=== PATIENT | female | born 1950 | race Caucasian/White ===

== ENCOUNTER → 2019-05-29 13:00 | Outpatient (BNVA) | payer MEDICARE, SELFPAY | PROVIDERS: Family Provider Nurse Practitioner Family; PCP Nurse Practitioner Family; Visit Provider Specialist | DX: G20 Parkinson's disease (principal) | CPT/HCPCS: 99213 ==

== ENCOUNTER 2019-06-04 20:05 | Emergency (ER) | payer MEDICARE, SELFPAY ==
--- NOTE | 2019-06-04 20:07 | ED_ITS ---
Entered by Josephine Cabrera, acting as scribe for Cristy Doherty MD HPI - Fall General: Chief Complaint: Trauma Stated Complaint: RIGHT HIP PAIN Time Seen by Provider: 06/04/19 20:06 Source: patient and EMS Mode of arrival: EMS ([facility]) Limitations: no limitations History of Present Illness: HPI Narrative: 69 yo f came to the er by [facility] for right hip pain. 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 Pt said that she felt a pop and then fell right after that. Pt is non weight bearing at this time. Pt said that her collapsed and she tried picking hip up and that is when her hip popped. Pt said that she had a hip replacement 10 years ago but does not remember who did it. 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) Fall from: standing Fall witnessed: no Place fall occurred: home Loss of consciousness: None Prolonged down time: no Symptoms prior to fall: none Context: other (tried helping her up and then it popped) Location of injury: other (right hip) Severity: moderate Quality: sharp Associated symptoms-after fall: Reports no associated symptoms and difficulty walking (cannot bear any weight); Denies chest pain or neck pain Review of Systems General: Reports: other (negative unless marked) Const: Denies: fever, chills, body aches or change in appetite Eyes: Denies: blurry vision or eye discomfort ENMT: Denies: throat pain or dental pain Card: Denies: chest pain Resp: Denies: shortness of breath or productive cough GI: Denies: nausea : Denies: painful urination Musc: Denies: neck pain or back pain Skin/Breast: Denies: rash Neuro: Reports: difficulty walking (cannot bear any weight) Psych: Denies: depression Narciso/Lymph: Denies: easy bruising All/Imm: Denies: hives PFSH ED PFSH: Social History Smoking and tobacco status: never smoked Alcohol intake: never History of recent travel: No Physical Exam Const: COMMON NORMALS: no apparent distress, oriented x3 and healthy appearing HENMT: COMMON NORMALS: normocephalic and head/scalp atraumatic HEAD & SCALP: normocephalic and atraumatic Eye: COMMON NORMALS: PERRL and EOMs intact bilaterally PUPIL: Yes PERRL Neck/C-Spine: COMMON NORMALS: full ROM and supple Chest: COMMONS NORMALS: inspection of chest normal and palpation of chest normal Resp: COMMON NORMALS: normal respiratory effort, no retractions, no use of accessory muscles and clear to auscultation bilaterally AUSCULTATION: clear to auscultation bilaterally Cardio: COMMON NORMALS: regular rate, regular rhythm and no murmurs RATE: regular rate RHYTHM: regular rhythm GI: COMMON NORMALS: normal to inspection, nondistended, normoactive bowel sounds, soft to palpation, non-tender and no masses PALPATION: Yes soft Extremity: NARRATIVE EXTREMITY EXAM: shortened right leg with painful rom Neuro: COMMON NORMALS: oriented x3, moves all extremities and no focal motor deficits Psych: COMMON NORMALS: mental status grossly normal, thought process normal and cooperative THOUGHT PROCESS: normal thought process Skin: COMMON NORMALS: no rashes or lesions noted and no wounds GENERAL SKIN EXAM: no rashes or lesions noted Procedures Orthopedic Joint Reduction Joint #1: Time Out Performed: Yes Side: right Joint Reduction Location: hip Analgesia: procedural sedation Technique used: traction/counter-traction Post-reduction neuro exam: intact Post-reduction vascular: intact Post Reduction X-Ray Obtained: Yes Post Reduction X-Ray Results: reduced Splint Applied: Yes Patient Tolerated Procedure: well Procedural Sedation Indication: fracture/dislocation reduction ASA Class: II Time of Last PO Intake: 12:22 IV Propofol dose (mg): 100 Patient Tolerated Procedure: well Complications: none Interventions: oxygen applied Course Vital Signs: Vital signs: Vital Signs Temperature 97.8 F 06/04/19 21:11 Pulse Rate 68 06/04/19 22:27 Respiratory Rate 16 06/04/19 22:27 Blood Pressure 124/70 06/04/19 22:27 Pulse Oximetry 98 06/04/19 22:27 MDM - Fall MDM Narrative: Medical decision making narrative: Patient presents here with right hip dislocation after a fall. Hip was successfully reduced and patient placed in a knee immobilizer. Patient is stable for discharge and is to follow- up with Dr. Winter in 2 to 4 days. Patient is to return if worsening. Imaging Data^: xr right hip: Attestation: I personally reviewed and interpreted this imaging study as follows: My impression: right hip dislocation xr hip: Attestation: I personally reviewed and interpreted this imaging study as follows: Radiologist's impression: successful reduction Discharge Plan Discharge Patient Disposition: Home, Self-Care Clinical Impression: Dislocation, hip Qualifiers: Encounter type: initial encounter Laterality: right Qualified Code(s): S73.004A - Unspecified dislocation of right hip, initial encounter Condition: Stable Prescriptions: [place] 5-325 mg tablet 1 tab PO Q6H PRN (Reason: pain) Qty: 10 RF: 0 No Action celecoxib 100 mg capsule 100 mg PO DAILY RF: 0 multivitamin with minerals [Hair,Skin and Nails] Tablet 1 tab PO DAILY RF: 0 turmeric root extract 500 mg capsule 500 mg PO DAILY RF: 0 omega-3 fatty acids 1,000 mg capsule 1,000 mg PO DAILY RF: 0 PreserVision AREDS [id number],320-226-200 [id number] capsule 1 cap PO ONCE RF: 0 nortriptyline 25 mg capsule 25 mg PO DAILY RF: 0 atorvastatin 10 mg tablet 5 mg PO DAILY RF: 0 vitamin E 200 unit capsule 100 unit PO DAILY RF: 0 metformin 500 mg tablet 500 mg PO DAILY RF: 0 fluticasone propionate 50 mcg/actuation spray,suspension 2 spray INTRANASAL DAILY RF: 0 irbesartan 150 mg tablet 225 mg PO DAILY RF: 0 carbidopa-levodopa 25-100 mg tablet See Rx Instructions PO DAILY Qty: 180 RF: 2 B Complex 1.7-20-2-1.2 mg/mL Liquid 1.7 ml SUBLINGUAL DAILY RF: 0 Discharge Orders: Discharge Order (Routine); Ordered 06/04/19 Ordered By: Cristy Doherty Referrals: Jody Lloyd MD [Physician] - 1-3 days Leigh Ovalle NP [Primary Care Provider] - Discharge Diet: Advance as tolerated Discharge Activity: Resume usual activity Patient Instructions: Hip Dislocation (ED) Discharge Date/Time: 06/04/19 22:29 Coding Level of Care Code ED Dampener for Chg 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 The documentation recorded by the Rick soto Stephanie Lyn, accurately reflects the service I personally performed and the decisions made by Chas dorado Korby, MD Jun 04, 2019 20:05
--- NOTE | 2019-06-04 20:09 | XR_ITS ---
WS: [id number] Right hip, AP and frog leg, 06/04/2019 Clinical Data: injury Comparison: Right hip, 10/15/2007 Findings: The femoral head prosthesis has been dislocated from the femoral acetabular cup of the right hip arth roplasty. The femoral head is superior to the acetabular cup. No fractures are seen. XR/XR hip RT 2-3V wo/w pel* [id number] Impression: Dislocation of femoral head prosthesis from the femoral acetabular cup of right hip arthroplasty.
[2019-06-04 20:10] VITALS: BP 171/98; PULSE 100; RESP 18; TEMP 37.1; O2SAT 97; BMI 27.8
[2019-06-04] MEDS: morphine 4 mg/mL SDV 1 mL IVP (21:06)
[2019-06-04 21:11] VITALS: BP 176/91; PULSE 63; RESP 14; TEMP 36.6; O2SAT 100
--- NOTE | 2019-06-04 21:14 | XR_ITS ---
WS: [id number] Right hip, AP view, 06/04/2019, 2127 hours Clinical Data: REDUCTION Comparison: Right hip, 06/04/2019, 2014 hours Findings: The dislocation of the right femoral head prosthesis has been relocated into the right acetabular cup . XR/XR hip RT 2-3V wo/w pel* [id number] Impression: Reduction of right hip dislocation.
[2019-06-04] MEDS: propofol 10 mg/mL SDV 20 mL 100 MG IVP (21:15)
[2019-06-04 21:16] VITALS: BP 146/96; PULSE 90; RESP 16; O2SAT 98
[2019-06-04 21:20] VITALS: BP 157/75; PULSE 91; RESP 16; O2SAT 99
[2019-06-04 21:30] VITALS: BP 122/80; PULSE 93; RESP 16; O2SAT 100
[2019-06-04 22:27] VITALS: BP 124/70; PULSE 68; RESP 16; O2SAT 98
--- NOTE | 2019-06-05 11:25 | DCPLANNER ---
occupational health and safety manager had message to schedule a follow up appointment for patient with ortho. occupational health and safety manager called ortho clinic, spoke with Sierra, gave clinic patients information. occupational health and safety manager was told that patients information would be printed and reviewed. Clinic will call nurse case management and patient with appointment information.
--- NOTE | 2019-06-06 09:31 | DCPLANNER ---
pool manager had message from the ortho clinic, Patient has a follow up appointment scheduled for Monday, June 10, 2019 at 1:[address] Lloyd. Clinic will call patient with appointment information.
--- NOTE | 2019-06-28 14:22 | DCPLANNER ---
Patient did attend appointment scheduled for 06.10.[address] Lloyd at ortho.
== END 2019-06-04 22:29 | disposition home or self-care (01) ==
PROVIDERS: Emergency Provider Emergency Medicine; Family Provider Nurse Practitioner Family; PCP Nurse Practitioner Family
DX: T84.020A Dislocation of internal right hip prosthesis, initial encounter (principal); X50.0XXA Overexertion from strenuous movement or load, initial encounter
CPT/HCPCS: 12345; 27250; 29530; 73502; 96361; 96374; 96375; 99282; 99284; J2270; J2704

== ENCOUNTER → 2019-06-10 11:43 | Outpatient (BNVA) | payer MEDICARE, SELFPAY | PROVIDERS: Family Provider Nurse Practitioner Family; PCP Nurse Practitioner Family; Referring Provider Family Medicine; Visit Provider Specialist | DX: T84.020A Dislocation of internal right hip prosthesis, initial encounter (principal); X58.XXXA Exposure to other specified factors, initial encounter; Z96.641 Presence of right artificial hip joint | CPT/HCPCS: 73502 ==

== ENCOUNTER 2019-06-15 12:24 | Observation (INO) | payer MEDICARE, SELFPAY ==
[2019-06-15] VITALS (16 sets, daily range): BP systolic 104–161; BP diastolic 60–82; PULSE 78–101; RESP 16–20; TEMP 36.4–37.6; O2SAT 97–100; BMI 27.8
--- NOTE | 2019-06-15 | XR_ITS ---
WS: [id number] INTRAOPERATIVE TECHNIQUE: 3 Spot fluoroscopic images for intraoperative purposes. FLUOROSCOPY TIME: 11.3 seconds CLINICAL INFORMATION: OR PIC COMPARISON: None. FINDINGS: Postoperative changes right SOCO. Hardware appears in good position. Dislocation has been reduced. XR/XR hip RT 1V wo/w pel [id number] IMPRESSION: Images obtained for intraoperative purposes.
--- NOTE | 2019-06-15 | SCC_ITS ---
Procedure Done: Closed reduction of dislocated right total hip prosthesis under anesthesia 11.3 seconds of fluoroscopic guidance, for a cumulative dose of 1.15 mGy, was provided to Dr. Newberry by the radiology department. C-arm images of the RIGHT hip were saved for the patient's permanent record. ROXI
--- NOTE | 2019-06-15 12:36 | W.ED.EXTPRO ---
HPI - Extremity Problem General: Chief complaint: Extremity Problem,Nontraumatic Stated complaint: RIGHT HIP PAIN Time Seen by Provider: 06/15/19 12:26 History of Present Illness: HPI Narrative: 69-year-old female she brought in by ambulance complaint of right hip pain she had hyperflexed at the hip and felt like it had dislocated she has had this happen before. MD Complaint: joint paint (Right hip) Onset (ago): minute(s) Location: right and lower extremity (Hip) Severity scale (1-10): 5 Quality: sharp Radiation: none Relieving factors: nothing Exacerbating factors: palpation Associated symptoms: Deny chest pain, fever(s) or rash Review of Systems Const: Denies: fever, chills, body aches, change in appetite, fatigue or malaise ENMT: Denies: throat pain, ear pain, nasal discharge or nasal congestion Card: Denies: chest pain, edema, shortness of breath on exertion or shortness of breath when lying down Resp: Denies: shortness of breath, productive cough or non-productive cough GI: Denies: abdominal pain, nausea, vomiting, vomiting blood, coffee grounds in vomit, diarrhea, constipation, bloating, blood in stool or black tarry stool : Denies: flank pain, difficulty urinating, painful urination, urinary frequency or urinary urgency Skin/Breast: Denies: rash or itching PFS ED PFSH: Medical History (Updated 06/16/19 @ 08:47 by Mart Childress DO) Diabetes Hypertension Parkinson disease Family History Other Diabetes Hypertension Stroke Denies family history of CAD (coronary artery disease) Cancer Social History Smoking and tobacco status: never smoked Alcohol intake: never History of recent travel: No Physical Exam Const: COMMON NORMALS: no apparent distress GENERAL APPEARANCE: cooperative ORIENTATION/CONSCIOUSNESS: Yes awake, Yes oriented to person, Yes oriented to place and Yes oriented to time HENMT: COMMON NORMALS: normocephalic, head/scalp atraumatic, hearing grossly normal bilaterally, external ears normal, EAC's normal, TM's normal bilaterally, nasal mucous membranes and turbinates normal, moist oral mucous membranes and oropharynx normal HEAD & SCALP: normocephalic and atraumatic NOSE: nasal mucous membranes and turbinates normal EXTERNAL EAR: Yes external ears normal EXTERNAL AUDITORY CANAL: EAC's normal TYMPANIC MEMBRANE: TM's normal bilaterally Eye: COMMON NORMALS: PERRL, EOMs intact bilaterally, conjunctivae normal and no scleral icterus CONJUNCTIVA: Yes conjunctivae normal PUPIL: Yes PERRL Neck/C-Spine: COMMON NORMALS: full ROM, no lymphadenopathy, supple and no JVD Lymph: LYMPHATIC: no lymphadenopathy noted and no lymphedema noted Resp: COMMON NORMALS: normal respiratory effort, no retractions, no use of accessory muscles and clear to auscultation bilaterally AUSCULTATION: clear to auscultation bilaterally Cardio: COMMON NORMALS: no JVD, regular rate, regular rhythm and no murmurs RATE: regular rate RHYTHM: regular rhythm GI: COMMON NORMALS: soft to palpation and no hepatosplenomegaly AUSCULTATION: Yes normoactive bowel sounds PALPATION: Yes soft, No tender, No guarding and Yes no hepatosplenomegaly Extremity: COMMON NORMALS: normal capillary refill, no clubbing, cyanosis or edema and no pedal edema NARRATIVE EXTREMITY EXAM: External rotation and shortening of the right leg x-rays consistent with prosthesis dislocation. Neuro: SENSORIUM/ORIENTATION: Yes oriented to person, Yes oriented to place and Yes oriented to time Skin: COMMON NORMALS: no rashes or lesions noted GENERAL SKIN EXAM: no rashes or lesions noted Procedures Orthopedic Joint Reduction Joint #1: Time Out Performed: Yes Side: right Joint Reduction Location: hip Analgesia: procedural sedation Technique used: traction/counter-traction Post-reduction neuro exam: no change Post Reduction X-Ray Obtained: Yes Post Reduction X-Ray Results: not reduced Additional Comments: Multiple attempts by myself and by Dr. Doherty. Twice it had felt as if the joint did reduce but when x-rays showed no reduction. Dr. Doherty made 3 attempts is well-known to we did x-rays and found there was no reduction. Finally any attempts were been abandoned surgery was consulted for joint reduction in the operating room. Procedural Sedation Indication: fracture/dislocation reduction ASA Class: I Time of Last PO Intake: 10:00 Preparation: school lunch monitor applied, pulse oximeter, supplemental O2 applied, suction/airway equipment at bedside and IV secured Fentanyl: IV Fentanyl dose (mcg): 75 Midazolam: IV Midazolam dose (mg): 5 IV Propofol dose (mg): 50 IV Etomidate dose (mg): 40 Additional Comments: Initially tried using titrated doses of Versed and fentanyl. The totals listed above of the total was given through titration. Then using 10 mg individual doses of etomidate and 4 different incidences finally 50 mg single push dose of propofol. Course Vital Signs: Vital signs: Vital Signs Temperature 98.3 F 06/16/19 04:03 Pulse Rate 94 06/16/19 04:03 Respiratory Rate 18 06/16/19 04:03 Blood Pressure 111/72 06/16/19 04:03 Pulse Oximetry 94 06/16/19 04:03 MDM - Extremity (Nontraumatic) MDM Narrative: Medical decision making narrative: Multiple attempts with under conscious sedation by myself and by my partner today Dr. Doherty neither 1 of us were able to get this reduced. He tried fentanyl and Versed initially then tried several small push doses of etomidate we had adequate relaxation but were not able to get it reduced. Finally tried a single dose of propofol which also failed. Contacted Dr. Newberry will keep the patient n.p.o. put her on observation he will taken to the operating room later for reduction. Discharge Plan Discharge Patient Disposition: Admitted As Inpatient Admit Provider: Yovany Newberry Clinical Impression: Dislocation of internal right hip prosthesis, initial encounter, Parkinson disease Condition: Stable Interventions: ED Discharge Assessment Last Done: 06/15/19 14:39 Discharge Date/Time: 06/15/19 14:55 Coding Level of Care Code ED Account Developer for Miriam 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
--- NOTE | 2019-06-15 12:41 | XRR_ITS ---
PROCEDURE INFORMATION: Exam: XR Right Hip with Pelvis when Performed Exam date and time: 06/15/2019 12:42 PM Age: 69 years old Clinical indication: Hip pain; Right hip; Prior surgery; Surgery date: 6+ months; Additional info: Possible dislocation TECHNIQUE: Imaging protocol: XR Right hip with pelvis when performed. Views: 1 view. COMPARISON: CR XR hip RT 2-3V wo/w pel* [id number] 06/10/2019 11:49 AM FINDINGS: Bones/joints: There is dislocation of the metallic right hip prosthesis. The distal component is retracted above the acetabular component. The acetabular component is in stable since prior examination.. No acute fracture. Soft tissues: Unremarkable. XR/XR hip RT 1V wo/w pel [id number] IMPRESSION: Dislocation of the the metallic right hip arthroplasty as described
[2019-06-15] MEDS: ondansetron 2 mg/ML SDV 2 mL 4 MG IVP (12:52)
[2019-06-15] MEDS: morphine 4 mg/mL SDV 1 mL IVP (12:52)
[2019-06-15] MEDS: midazolam 1 mg/mL INJ 2 mL 5 MG IVP (13:18)
[2019-06-15] MEDS: fentaNYL 50 mcg/mL INJ 2mL IVP (13:18)
--- NOTE | 2019-06-15 13:29 | XRR_ITS ---
PROCEDURE INFORMATION: Exam: XR Right Hip with Pelvis when Performed Exam date and time: 06/15/2019 2:00 PM Age: 69 years old Clinical indication: Other: Dislocation; Prior surgery; Surgery date: 6+ months; Surgery type: Hip, date not provided; Additional info: Post reduction TECHNIQUE: Imaging protocol: XR Right hip with pelvis when performed. Views: 1 view. COMPARISON: CR (PELVIS, ) 06/15/2019 12:40 PM FINDINGS: Bones/joints: There is a dislocation of the right bipolar hip prosthesis. This is unchanged from 06/15/2019 at 12:43 p.m after a post reduction attempt. Soft tissues: Unremarkable. XR/XR hip RT 2-3V wo/w pel* [id number] IMPRESSION: Status post an attempted reduction of a dislocation of the right bipolar hip prosthesis unchanged from 06/15/2019 at 12:43 p.m.
[2019-06-15] MEDS: propofol 10 mg/mL SDV 20 mL 50 MG IVP (14:07)
[2019-06-15 14:30] LABS: Basophils % 0.3 %; Eosinophils # 0.1 10^3/uL (0.0-0.8); Eosinophils % 0.5 %; Hematocrit 38.7 % (37.0-47.0); Hemoglobin 12.3 g/dL (11.5-15.3); Lymphocytes % 8.2 %; Mean Corpuscular HGB Conc 31.8 g/dL (30.0-36.0); Mean Corpuscular Hemoglobin 29.7 pg (28.0-34.0); Mean Corpuscular Volume 93.5 fL (81-99); Monocytes # 0.8 10^3/uL (0.2-0.9); Monocytes % 6.6 %; Neutrophils # 9.8 10^3/uL (1.8-7.7); Neutrophils % 83.7 %; Nucleated Red Blood Cells % 0 %; Platelet Count 294 10^3/cmm (130-400); Red Blood Count 4.14 10^6/uL (4.1-5.3); Red Cell Distribution Width 12.7 % (12.1-15.1); White Blood Count 11.7 10^3/uL (4.0-10.0)
[2019-06-15 14:47] LABS: Anion Gap 13.7 (5-19); Blood Urea Nitrogen 12 mg/dL (8-23); Calcium 9.6 mg/dL (8.5-10.5); Carbon Dioxide 27 mmol/L (22-29); Chloride 104 mmol/L (98-107); Glomerular Filtration Rate 99.7 mL/min (90-130); Glucose 145 mg/dL (65-115); Osmolality Calculated 291 mOsm/kg (285-295); Potassium 3.7 mmol/L (3.5-5.1); Sodium 141 mmol/L (136-145)
[2019-06-15] MEDS: D5-NS 0.45% + KCL 20 mEq 20 MEQ/1,000 ML BAG 100 MEQ IV (15:35)
--- NOTE | 2019-06-15 15:51 | PC.NURSE ---
to surg Pt taken down in bed to surgery..
--- NOTE | 2019-06-15 16:14 | P.HP_ITS ---
Providers/Chief Complaint Admitting Physician: Yovany Newberry DO Primary Care Provider: Leigh Ovalle NP Chief Complaint: LEFT HIP PAIN History of Present Illness Olga Luciano is a 69 year old female status post right total hip arthroplasty. 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 She denies any other injury. She denies any chest pain shortness of breath palpitations. She has a history of Parkinson's disease . Prior to a recent dislocation latter part of May where she underwent close reduction in the emergency room was later followed up in the orthopedic clinic she is never had any difficulties with her right total hip arthroplasty. She was seen in the emergency room today attempts were made to reduce the hip under moderate sedation. They were unsuccessful in reducing her hip. Orthopedic consultation was requested. Patient was sent to the floor to await surgery as she had eaten earlier today. She is now brought to the operating room for attempted closed reduction of her right total hip arthroplasty. As we have no records with regards to her components. We will slowly be performing an attempted close reduction today with no consideration given to an open procedure. I explained this to the patient she is agreeable to proceed. Review of Systems Const: Denies: fever or chills Card: Denies: chest pain or palpitations Resp: Denies: shortness of breath or productive cough GI: Denies: abdominal pain, nausea or vomiting Musc: Reports: joint pain (Mild right hip pain) Neuro: Reports: frequent falls (2 falls in the recent past due to dislocation of her right total hip prosthesis) Medications/Allergies Home Medications Medication Instructions Recorded Confirmed Last Taken Type carbidopa-levodopa See Rx Instructions .ROUTE .COMPLEX 06/15/19 06/15/19 06/15/19 History vitamin B complex 1 tab PO DAILY 06/15/19 06/15/19 Unknown History Allergies Allergy/AdvReac Type Severity Reaction Status Date / Time No Known Allergies Allergy Verified 06/15/19 12:30 PFSH Acute PFSH: Medical History (Updated 06/15/19 @ 16:23 by Yovany Newberry DO) Diabetes Hypertension Parkinson disease Family History Other Diabetes Hypertension Stroke Denies family history of CAD (coronary artery disease) Cancer Social History (Reviewed 06/15/19 @ 12:40 by GUDELIA Meyers Smoking and tobacco status: never smoked Alcohol intake: never History of recent travel: No Vitals/I&O/Wt Last Vital Signs Temp 97.7 F 06/15/19 15:28 Pulse 87 06/15/19 15:28 Resp 16 06/15/19 15:28 BP 161/65 06/15/19 15:28 Pulse Ox 100 06/15/19 15:28 Weight last 48 hrs Weight 162 lb Physical Exam Const: COMMON NORMALS: no apparent distress, average body habitus, oriented x3, healthy appearing, alert and well nourished GENERAL APPEARANCE: cooperative, comfortable and well developed ORIENTATION/CONSCIOUSNESS: Yes awake; not confused and not obtunded Resp: COMMON NORMALS: normal respiratory effort, no retractions, no use of accessory muscles and clear to auscultation bilaterally Cardio: COMMON NORMALS: no JVD, regular rate and regular rhythm GI: COMMON NORMALS: normal to inspection, nondistended, normoactive bowel aleida nds, soft to palpation and non-tender Extremity: RIGHT LOWER EXTREMITY: Yes hip joint Right hip: Yes inspection (Right lower extremity shortened and externally rotated compared to left) and Yes neurovascular exam (Sensation intact) and Yes lower leg Right lower leg: Yes special tests Right lower leg special tests: Sara's sign: Negative LEFT LOWER EXTREMITY: Yes lower leg Left lower leg: Yes special tests Left lower leg special tests: Sara's sign: Negative Data : 06/15/19 14:20 06/15/19 14:20 A&P Assessment and plan (1) Dislocation of internal right hip prosthesis, initial encounter: Please see above. I am unable to correct the reason for admission left hip pain due to it being entered somewhere earlier in the electronic medical record but all injuries are related to the right hip and right hip pain for recurrent dislocation right total hip prosthesis. Plan today will be to perform closed reduction. No attempted open reduction will be considered at this time. At this highly unlikely that we will not be able to reduce her hip today. Plan will be to keep her in-house until I can contact physical therapy and have her fitted for a hip abduction orthosis to prevent recurrent dislocation. Status: Acute (2) Parkinson disease: Status: Acute Attestations Medical Necessity Statement*: Anticipate only an overnight stay for this patient. Physical therapy unable to be contacted at this time. I need the patient be placed in a hip abduction orthosis to prevent recurrent dislocation. Unsure whether or not a hip abduction orthosis is in house. As it is a weekend this may be difficult to obtain from an outside vendor Time Spent in Patient Care: Greater than 35 minutes (>than 50% of time spent in counselling and/or direct pt care on unit) . Coding Level of Care Code Acute Jewel Hole Gauger for Miriam Champion Diagnoses Dislocation of internal right hip prosthesis, initial encounter T84.020A Parkinson disease G20
[2019-06-15] MEDS: sodium chloride 0.9% 500 ML 999 ML IV (16:19)
--- NOTE | 2019-06-15 16:26 | ANES.PREANE2 ---
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 Proposed Procedure: Operation Date: 06/15/19 16:30 Proposed Procedures p Closed Reduction Hip(Not Applicable) - Yovany Newberry DO Was Beta Chava taken within 24 hours: N/A Last intake: Intake Last Liquid Date 06/15/19 Last Liquid Time 10:30 Last Solid Date 06/15/19 Last Solid Time 10:30 Social: Social History: No alcohol and No tobacco Exam: Pre-Anes Outpt Exam: alert, oriented x 3, clear to auscultation bilaterally and regular rate & rhythm Airway: Submandibular: WNL Cervical ROM: WNL MP: 2 Dentition: Full History/ROS: No significant history except as noted and No significant complaints Pulmonary: Pulmonary: None reported CV/HEM: CV/HEM: HTN : : None reported Hepatic: Hepatic: None reported GI: GI: None reported Metabolic: Metabolic: DM Musc/skel: Musc/skel: None reported Neuropsych: Comments: parkinsons disease Anesthetic Plan: ASA status: 3E Anesthesia: Anesthesia Evaluation and General Risk of > 500 ml blood loss (7ml/kg in children): No Meds/Allergies Current Medications: Current Medications Generic Name Dose Route Start Last Admin Trade Name Freq PRN Reason Stop Dose Admin Potassium Chloride /Dextrose/Sod Cl 20 meq in 1,000 m ls @ 100 mls/hr 06/15/19 15:28 06/15/19 15:35 D5-Ns 0.45% + Aldair l 20 Meq IV 100 mls/hr .Q10H ASHLY Administration Sodium Chloride 500 mls @ 999 mls /hr 06/15/19 16:09 06/15/19 16:19 Sodium Chloride 0.9% IV 999 mls/hr .Q31M PRN Administration HYPOTENSION PFSH Anesthesia PFSH: Medical History (Updated 06/15/19 @ 16:23 by Yovany Newberry DO) Diabetes Hypertension Parkinson disease Family History Other Diabetes Hypertension Stroke Denies family history of CAD (coronary artery disease) Cancer Social History Smoking and tobacco status: never smoked Alcohol intake: never History of recent travel: No Data Anesthesia CBC & Chem 7: 06/15/19 14:20 06/15/19 14:20 Other Labs: Laboratory Results - last 48 hr 06/15/19 06/15/19 14:20 14:20 WBC 11.7 H RBC 4.14 Hgb 12.3 Hct 38.7 MCV 93.5 MCH 29.7 MCHC 31.8 RDW 12.7 Plt Count 294 MPV 9.0 Neut % (Auto) 83.7 Lymph % (Auto) 8.2 [place] % (Auto) 6.6 Eos % (Auto) 0.5 Baso % (Auto) 0.3 Neut # (Auto) 9.8 H Lymph # (Auto) 1.0 [place] # (Auto) 0.8 Eos # (Auto) 0.1 Baso # (Auto) 0.0 Nucleated RBC % (auto) 0 Nucleated RBCs # 0.0 Sodium 141 Potassium 3.7 Chloride 104 Carbon Dioxide 27 Anion Gap 13.7 BUN 12 Creatinine 0.6 GFR Calculation 99.7 Glucose 145 H Calculated Osmolality 291 Calcium 9.6 Cardiac Studies: No Data to Display
--- NOTE | 2019-06-15 16:29 | P.OP_ITS ---
Operative Report Date of procedure: June 15, 2019 Pre-op Diagnosis: recurrent right dislocatd hip prosthesis Post-op diagnosis: same Post-op Findings: Satisfactory duction right total hip prosthesis no evidence of fracture Procedure Done: Closed reduction of dislocated right total hip prosthesis under anesthesia Pathology: none sent Surgeon: Yovany Newberry Anesthesia: General Complications: none Findings: Fluoroscopic imaging show satisfactory reduction of right total hip arthroplasty no evidence of fracture Condition: stable Disposition: PACU Brief History: 69-year-old white female status post right total hip arthroplasty greater than 10 years ago. She has sustained a previous dislocation of her right hip with bending over June 04, 2019. Her hip was reduced in the emergency room by ER physicians. She is placed in the immobilizer. She separately been seen in the orthopedic clinic by . Patient was doing well with no complaints of pain. Patient misfortune of bending forward and causing her right total hip arthroplasty to dislocate. She fell to the ground. No other injuries. Patient seen orthopedic consultation plan to take her to the operating room for close reduction under anesthesia as with moderate sedation in the emergency room ER physicians were unable to reduce her fracture. She is aware he may not be able to reduce her hip dislocation. If that occurs. No attempt to perform open surgery today will be performed. She may need to be referred to a saline institution where she had her hip surgery done that has those records. Otherwise revision surgery could be contemplated here but only after we know the components and can make arrangements to perform her surgery in a safe fashion. Procedure: The patient was identified. Surgical site was signed. Surgical permit signed. The patient was taken to the operating room. The patient was placed under general anesthesia while in her hospital bed. She was then transferred to the [place] table. A timeout was performed. With the patient's lower extremity placed in slight flexion and adduction with a large bolster over the post gross longitudinal traction was applied and locked in place. We then used small terms of longitudinal traction. We noted a visible reduction. Fluoroscopic imaging demonstrated a satisfactory reduction with no fracture. And use lifetime fluoroscopic imaging with internal/external rotation to show that the hip was stable and no evidence of motion within the f femoral stem that might be indicative of a fracture. Acetabulum appears stable no breakage of screws noted. Hip abduction wedge was applied between the patient's legs she is then transferred to the hospital bed and taken to the recovery room. She tolerated seizure well. All counts are correct. No blood loss is no incision was made. Instrument count not applicable.
--- NOTE | 2019-06-15 17:04 | SUR.PHASEI ---
pt awake alert denies pain and nausea ABD pillow in place no dressing distal pulse rt foot strong and regular, pt in 2l nc as before, good resp pt taking ice chips without difficulty.
--- NOTE | 2019-06-15 17:22 | PC.NURSE ---
Back Pt back from surgery.
[2019-06-15 17:36] LABS: Glucose Point of Care 97 mg/dL (70-110)
[2019-06-15] MEDS: sodium chloride 0.9% 1,000 ML 80 ML IV (18:12)
[2019-06-15] MEDS: sennosides-docusate Tablet 2 TAB PO (18:13)
[2019-06-15] MEDS: mupirocin oint 22 gm 1 APPLIC NASAL (18:13)
[2019-06-15] MEDS: HYDROcodone-acetaminophen 5-325 mg Tablet 1 TAB PO (18:17)
[2019-06-15 21:22] LABS: Glucose Point of Care 147 mg/dL (70-110)
[2019-06-15] MEDS: chlorhexidine gluconate 0.12% Btl 473 mL 30 ML MUCOUS MEM (21:36)
[2019-06-16 00:48] VITALS: BP 111/71; PULSE 89; RESP 18; TEMP 36.7; O2SAT 98
[2019-06-16] MEDS: acetaminophen 500 mg Tablet 1000 MG PO ×2 (01:10→08:55)
[2019-06-16 04:03] VITALS: BP 111/72; PULSE 94; RESP 18; TEMP 36.8; O2SAT 94
[2019-06-16] MEDS: sodium chloride 0.9% 1,000 ML 80 ML IV (05:29)
[2019-06-16] MEDS: enoxaparin 40 mg/0.4 mL Syringe SUBCUT (05:29)
[2019-06-16 06:12] LABS: Basophils % 0.3 %; Eosinophils # 0.2 10^3/uL (0.0-0.8); Eosinophils % 2.8 %; Hematocrit 33.7 % (37.0-47.0); Hemoglobin 10.8 g/dL (11.5-15.3); Lymphocytes # 1.3 10^3/uL (0.8-4.8); Lymphocytes % 17.1 %; Mean Corpuscular Hemoglobin 30.4 pg (28.0-34.0); Mean Corpuscular Volume 94.9 fL (81-99); Mean Platelet Volume 9.3 fL (7.4-10.4); Monocytes # 0.7 10^3/uL (0.2-0.9); Monocytes % 9.4 %; Neutrophils # 5.5 10^3/uL (1.8-7.7); Neutrophils % 70.1 %; Nucleated Red Blood Cells % 0 %; Platelet Count 260 10^3/cmm (130-400); Red Blood Count 3.55 10^6/uL (4.1-5.3); Red Cell Distribution Width 12.9 % (12.1-15.1); White Blood Count 7.8 10^3/uL (4.0-10.0)
[2019-06-16 06:34] LABS: Glucose Point of Care 102 mg/dL (70-110)
[2019-06-16 06:34] LABS: Anion Gap 12.8 (5-19); Blood Urea Nitrogen 12 mg/dL (8-23); Calcium 8.9 mg/dL (8.5-10.5); Carbon Dioxide 25 mmol/L (22-29); Chloride 107 mmol/L (98-107); Glomerular Filtration Rate 83.5 mL/min (90-130); Glucose 107 mg/dL (65-115); Osmolality Calculated 289 mOsm/kg (285-295); Potassium 3.8 mmol/L (3.5-5.1); Sodium 141 mmol/L (136-145)
[2019-06-16] MEDS: HYDROcodone-acetaminophen 5-325 mg Tablet 1 TAB PO (07:59)
[2019-06-16 08:00] VITALS: BP 110/67; PULSE 94; RESP 16; TEMP 37.6; O2SAT 93
--- NOTE | 2019-06-16 08:26 | ANE.PACU2 ---
 Inpatient post-anesthesia follow up: Airway intact: Yes Vital signs: Temperature 98.3 F Pulse Rate [Monito r] 100 Pulse Rate 94 Respiratory Rate 18 Blood Pressure [Ri ght Arm] 138/82 Blood Pressure 111/72 Pulse Oximetry 94 Oxygen Delivery Me thod Room Air Oxygen Flow Rate 2 Fraction of Inspir ed Oxygen Hydration adequate: Yes Nausea and vomiting: No Mental status: Baseline
[2019-06-16] MEDS: mupirocin oint 22 gm 1 APPLIC NASAL (08:54)
[2019-06-16] MEDS: multivitamin therapeutic Tablet 1 TAB PO (08:55)
[2019-06-16] MEDS: sennosides-docusate Tablet 2 TAB PO (08:55)
[2019-06-16] MEDS: metformin 500 mg Tablet PO (08:55)
[2019-06-16 08:56] VITALS: BP 111/72
[2019-06-16] MEDS: losartan 50 mg Tablet 75 MG PO (08:56)
[2019-06-16] MEDS: chlorhexidine gluconate 0.12% Btl 473 mL 30 ML MUCOUS MEM ×2 (08:58→13:44)
[2019-06-16] MEDS: fluticasone nasal spray 16gm Btl 2 SPRAY INTRANASAL (09:02)
--- NOTE | 2019-06-16 09:08 | PM.DCS ---
Discharge Providers Date of Admission: 06/15/19 14:15 Date of Discharge: June 16, 2019 Attending Provider at Admission: Yovany Newberry DO Attending Provider at Discharge: Yovany Newberry DO Primary Care Provider: Leigh Ovalle NP Diagnoses at Discharge Discharge Diagnosis (1) Dislocation of internal right hip prosthesis, initial encounter: Status: Acute (2) Parkinson disease: Status: Acute (3) Diabetes: Status: Acute Qualifiers: Diabetes mellitus type: type 2 Diabetes mellitus complication status: without complication Diabetes mellitus longterm insulin use: unspecified longterm insulin use status Qualified Code(s): E11.9 - Type 2 diabetes mellitus without complications (4) Hypertension: Status: Acute Qualifiers: Hypertension type: essential hypertension Qualified Code(s): I10 - Essential (primary) hypertension Reason for Visit Reason for Visit: Reason For Visit: LEFT HIP PAIN Hospital Course Hospital Course: 69-year-old white female with approximately 10-year-old right total hip arthroplasty recently had a dislocation of her right hip on June 04, 2019. She was able to have her hip reduced in the emergency room and she was placed in a long-leg knee immobilizer. She is seen in the orthopedic clinic by Dr. Lloyd. The patient was doing well and the knee immobilizer was discontinued. 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 She had no other injuries. She is brought to the emergency room. She is evaluated by emergency room physicians. X-ray showed dislocation of the right hip prosthesis once again. No fractures were noted. Despite attempts with moderate sedation in the emergency room they are unable to reduce the hip. Orthopedic consultation was requested. Patient was taken to the operating room. Under general anesthesia she underwent successful reduction of the right total hip arthroplasty with no evidence of loosening or fracture about the prosthesis following the dislocation. Patient is weightbearing as tolerated. She has been fitted with a hip abduction orthosis 50 degrees of abduction range of motion 0 to 90 degrees. She has minimal .complaints of pain. Discharge Summary: Patient be discharged home today her daughter is at home to help support her. We have ordered home health service for physical therapy for gait transfer training reinforce use abduction wedge when in bed sleeping use of the hip abduction orthosis. She has been using either one or the other and is not to go about the house or in bed without either the hip abduction orthosis on or the abduction wedge in place. She may keep her previously scheduled appointment with Dr. Lloyd our joint reconstruction specialist. Due the Covid-19 she may require repeated reductions of her dislocation until she can undergo revision surgery if it is required. Physical Exam Narrative: EXAM NARRATIVE: 69-year-old white female no acute distress. She is alert and cooperative. She is presently sitting in a chair at the bedside. She is wearing a hip abduction orthosis. No calf tenderness bilaterally. She is able to dorsiflex and plantarflex her ankles bilaterally. Discharge Data Data Completed and Pending: Completed Studies During Hospitalization Category Date Time Status XR hip RT 1V wo/w pel [id number] Stat Exams 06/15/19 12:41 Completed XR hip RT 2-3V wo /w pel* [id number] Stat Exams 06/15/19 13:29 Completed Pending at discharge Category Date Time Status C-arm Fluoroscopy [id number] Routine Exams 06/15/19 16:11 Taken Complete Blood Co unt w/Auto AM LABS Lab 06/17/19 04:00 Ordered Complete Blood Co unt w/Auto AM LABS Lab 06/18/19 04:00 Ordered Labs from last 24 hours 06/16/19 06/16/19 06/16/19 06:23 05:39 05:39 WBC 7.8 RBC 3.55 L Hgb 10.8 L Hct 33.7 L MCV 94.9 MCH 30.4 MCHC 32.0 RDW 12.9 Plt Count 260 MPV 9.3 Neut % (Auto) 70.1 Lymph % (Auto) 17.1 [place] % (Auto) 9.4 Eos % (Auto) 2.8 Baso % (Auto) 0.3 Neut # (Auto) 5.5 Lymph # (Auto) 1.3 [place] # (Auto) 0.7 Eos # (Auto) 0.2 Baso # (Auto) 0.0 Nucleated RBC % (a uto) 0 Nucleated RBCs # 0.0 Sodium 141 Potassium 3.8 Chloride 107 Carbon Dioxide 25 Anion Gap 12.8 BUN 12 Creatinine 0.7 GFR Calculation 83.5 L Glucose 107 POC Glucose 102 Calculated Osmolal ity 289 Calcium 8.9 06/15/19 06/15/19 06/15/19 21:08 17:30 14:20 WBC RBC Hgb Hct MCV MCH MCHC RDW Plt Count MPV Neut % (Auto) Lymph % (Auto) [place] % (Auto) Eos % (Auto) Baso % (Auto) Neut # (Auto) Lymph # (Auto) [place] # (Auto) Eos # (Auto) Baso # (Auto) Nucleated RBC % (a uto) Nucleated RBCs # Sodium 141 Potassium 3.7 Chloride 104 Carbon Dioxide 27 Anion Gap 13.7 BUN 12 Creatinine 0.6 GFR Calculation 99.7 Glucose 145 H POC Glucose 147 97 Calculated Osmolal ity 291 Calcium 9.6 06/15/19 14:20 WBC 11.7 H RBC 4.14 Hgb 12.3 Hct 38.7 MCV 93.5 MCH 29.7 MCHC 31.8 RDW 12.7 Plt Count 294 MPV 9.0 Neut % (Auto) 83.7 Lymph % (Auto) 8.2 [place] % (Auto) 6.6 Eos % (Auto) 0.5 Baso % (Auto) 0.3 Neut # (Auto) 9.8 H Lymph # (Auto) 1.0 [place] # (Auto) 0.8 Eos # (Auto) 0.1 Baso # (Auto) 0.0 Nucleated RBC % (a uto) 0 Nucleated RBCs # 0.0 Sodium Potassium Chloride Carbon Dioxide Anion Gap BUN Creatinine GFR Calculation Glucose POC Glucose Calculated Osmolal ity Calcium Vitals: Last Vital Signs Temp 99.6 F 06/16/19 08:00 Pulse 94 06/16/19 08:00 Resp 16 06/16/19 08:00 BP 111/72 06/16/19 08:56 Pulse Ox 93 06/16/19 08:00 Discharge Plan Discharge Patient Disposition: Home Health Service Condition: Stable Prescriptions: New hydrocodone-acetaminophen 5-325 mg tablet 1 tab PO Q6H PRN (Reason: pain) Qty: 20 RF: 0 Discontinued hydrocodone-acetaminophen [[place]] 5-325 mg tablet 1 tab PO Q6H PRN (Reason: pain) Qty: 10 RF: 0 No Action celecoxib 100 mg capsule 100 mg PO DAILY RF: 0 turmeric root extract 500 mg capsule 500 mg PO DAILY RF: 0 PreserVision AREDS 14,320-226-200 [id number] capsule 1 cap PO BID RF: 0 nortriptyline 25 mg capsule 25 mg PO DAILY RF: 0 atorvastatin 10 mg tablet 5 mg PO DAILY RF: 0 vitamin E 200 unit capsule 100 unit PO DAILY RF: 0 metformin 500 mg tablet 500 mg PO DAILY RF: 0 fluticasone propionate 50 mcg/actuation spray,suspension 2 spray INTRANASAL DAILY RF: 0 irbesartan 150 mg tablet 225 mg PO DAILY RF: 0 vitamin B complex Tablet 1 tab PO DAILY RF: 0 carbidopa-levodopa 25-100 mg tablet See Rx Instructions .ROUTE .COMPLEX RF: 0 Discharge Orders: Discharge Order (Routine); Ordered 06/16/19 Ordered By: Yovany Newberry Referrals: Jody Lloyd MD [Physician] - (Follow-up with Dr. Lloyd per scheduled appointment) Yovany Grubbs MD [Referring] - (Call Monday and Make a hospital follow-up appointment in 4-[address] Grubbs primary care physician.) Discharge Diet: Diabetic Discharge Activity: Increase activity as tolerated, Limit activity as instructed and Use walker/crutches as instructed Activity Restrictions/Additional Instructions: Weightbearing as tolerated right lower extremity Must either be laying in bed with abduction wedge in place (blue foam with white straps) operating Room wearing hip abduction brace for a total of 24 hours/day. Either or must be utilized for the next 6 weeks. Home health aide has been requested for helping with activities of daily living such as dressing and bathing Home physical therapy has been ordered to help with transfer/gait training and strengthening and reinforcing use of the brace and abduction wedge Discharge Attestations Time Spent in Discharge Care*: less than 30 min Specific Discharge Activities: Specific discharge activities: educating patient Quality Metrics Clinical Quality Measures During this hospital stay, did patient experience: None Coding Level of Care Code Acute Director Of Leadership Development for [facility] Diagnoses Dislocation of internal right hip prosthesis, initial encounter T84.020A Parkinson disease G20 Diabetes E11.9 Diabetes mellitus type: type 2 Diabetes mellitus complication status: without complication 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
[2019-06-16 11:24] VITALS: BP 119/71; PULSE 82; RESP 16; TEMP 37.2; O2SAT 96
[2019-06-16 11:24] LABS: Glucose Point of Care 118 mg/dL (70-110)
[2019-06-16] MEDS: CELEcoxib 100 mg Capsule PO (11:28)
[2019-06-16] MEDS: nortriptyline 25 mg Capsule PO (11:28)
[2019-06-16 14:11] VITALS: BP 119/71; PULSE 82; RESP 16; TEMP 37.2; O2SAT 96
== END 2019-06-16 15:44 | disposition home health service (06) ==
LOC: ER 13:14 → MEDSURG 14:39
PROVIDERS: Admitting Provider Orthopaedic Surgery; Emergency Provider Family Medicine; Family Provider Nurse Practitioner Family; PCP Nurse Practitioner Family; Visit Provider Orthopaedic Surgery
PROC: (CPT 27266; principal; 2019-06-15 16:30)
DX: T84.020A Dislocation of internal right hip prosthesis, initial encounter (principal); G20 Parkinson's disease; E11.9 Type 2 diabetes mellitus without complications; I10 Essential (primary) hypertension; Z82.49 Family history of ischemic heart disease and other diseases of the circulatory system; Z83.3 Family history of diabetes mellitus
CPT/HCPCS: 27266; 12345; 36415; 36416; 73501; 73502; 76000; 80048; 82962; 85025; 96360; 96361; 96372; 96374; 96375; 97116; 97165; 97530; 97760; 99282; 99285; G0378; J0131; J0330; J1650; J1815; J2001; J2250; J2270; J2405; J2704; J3010; J3490; J7030; J7040; L1686

== ENCOUNTER 2019-07-12 16:00 | Emergency (ER) | payer MEDICARE, SELFPAY ==
[2019-07-12] VITALS (14 sets, daily range): BP systolic 121–160; BP diastolic 53–65; PULSE 96–119; RESP 14–20; O2SAT 95–100; BMI 27.8
--- NOTE | 2019-07-12 16:12 | XRR_ITS ---
PROCEDURE INFORMATION: Exam: XR Right Hip with Pelvis when Performed Exam date and time: 07/12/2019 4:32 PM Age: 69 years old Clinical indication: Hip pain; Prior surgery; Surgery type: R jazz; Patient HX: Recent dislocation of right hip, brace unable to be removed for x-ray images. [place] pop and pain in right hip trying to stand up; Additional info: Injury TECHNIQUE: Imaging protocol: XR Right hip with pelvis when performed. Views: 1 view. COMPARISON: CR XR hip RT 2-3V wo/w pel* [id number] 06/15/2019 1:26 PM FINDINGS: Bones/joints: There is dislocation and retraction of metallic right hip prosthesis. The distal component is retracted superior to the acetabular component. This finding appears similar to prior examination. No acute fracture. Soft tissues: Unremarkable. XR/XR hip RT 2-3V wo/w pel* [id number] IMPRESSION: Dislocation of metallic right hip prosthesis with retraction stable since prior examination. Negative for acute fractures
--- NOTE | 2019-07-12 16:39 | ED_ITS ---
HPI - Extremity Problem General: Chief complaint: Extremity Problem,Nontraumatic Stated complaint: DISLOCATED HIP Time Seen by Provider: 07/12/19 16:23 History of Present Illness: HPI Narrative: Pt states she was sitting on the toilet and she felt her right hip dislocate. States this happened 3 weeks ago as well and they had to take her to the or to put it back into place. Last ate and drank at 1130am, this occurred at 230pm Complaint: extremity pain, joint swelling and joint paint Onset (ago): hour(s) (2) Location: lower extremity Severity scale (1-10): 10 Quality: burning and aching Radiation: distal Relieving factors: immobilization Exacerbating factors: range of motion and weight bearing Associated symptoms: Reports no associated symptoms; Deny chest pain, fever(s) or rash Review of Systems General: Reports: 10 or more systems reviewed and unremarkable except in HPI and below Const: Denies: fever, chills or fatigue ENMT: Denies: throat pain Card: Denies: chest pain or swelling of feet/ankles Resp: Denies: shortness of breath or productive cough GI: Denies: abdominal pain, nausea, vomiting, diarrhea, constipation or blood in stool : Denies: difficulty urinating Musc: Denies: back pain or extremity swelling Skin/Breast: Denies: rash Neuro: Denies: headache, numbness in extremities or weakness in extremities PFSH ED PFSH: Medical History Diabetes Hypertension Parkinson disease Family History Other Diabetes Hypertension Stroke Denies family history of CAD (coronary artery disease) Cancer Social History Smoking and tobacco status: never smoked Alcohol intake: never History of recent travel: No Physical Exam Const: COMMON NORMALS: no apparent distress and oriented x3 GENERAL APPEARANCE: cooperative; not in distress HENMT: COMMON NORMALS: normocephalic HEAD & SCALP: normal to inspection and normocephalic MOUTH: oral and palatal mucosa normal and lip normal THROAT: posterior oropharynx normal and tonsils normal Neck/C-Spine: COMMON NORMALS: full ROM, no lymphadenopathy, supple and no meningeal signs GENERAL: Yes normal visual inspection and Yes trachea midline Chest: COMMONS NORMALS: inspection of chest normal Resp: COMMON NORMALS: normal respiratory effort and clear to auscultation bilaterally EFFORT & INSPECTION: Yes able to speak in complete sentences and No respiratory distress AUSCULTATION: clear to auscultation bilaterally, no rales, no rhonchi and no wheezes Cardio: COMMON NORMALS: regular rate, regular rhythm, S1 normal heart sound, S2 normal heart sound and no murmurs RATE: regular rate RHYTHM: regular rhythm HEART SOUNDS: S1 normal and S2 normal PERIPHERAL PULSES: radial pulses present and dorsalis pedis pulses present GI: COMMON NORMALS: normal to inspection, nondistended, normoactive bowel sounds, soft to palpation and non-tender INSPECTION: Yes normal to inspection AUSCULTATION: Yes normoactive bowel sounds PALPATION: Yes soft, No tender, No guarding and No rigid RECTAL EXAM: deferred : COMMON NORMALS: Yes no CVA tenderness BLADDER/KIDNEY EXAM: Yes no CVA tenderness Back/Pelvis: COMMON NORMALS: no CVA tenderness Extremity: RIGHT LOWER EXTREMITY: Yes hip joint (dilocated with deformity lateral, internal rotation, shortened) Neuro: COMMON NORMALS: oriented x3, CN's II-XII intact bilaterally, moves all extremities and no focal motor deficits MENINGEAL SIGNS: Yes no meningeal signs Skin: COMMON NORMALS: no rashes or lesions noted GENERAL SKIN EXAM: no rashes or lesions noted Procedures Orthopedic Joint Reduction Joint #1: Time Out Performed: Yes Side: right Joint Reduction Location: hip Analgesia: procedural sedation Shoulder Technique Used (if applicable): traction/counter-traction Post-reduction neuro exam: intact Post-reduction vascular: intact Post Reduction X-Ray Obtained: Yes Post Reduction X-Ray Results: reduced Splint Applied: Yes Patient Tolerated Procedure: well Procedural Sedation Indication: fracture/dislocation reduction Presedation Evaluation: wnl see above, airway normal, ASA Class: II Preparation: automation sales manager applied, pulse oximeter, supplemental O2 applied, suction/airway equipment at bedside and IV secured IV Propofol dose (mg): 100 IV Etomidate dose (mg): 15 Patient Tolerated Procedure: well and no complications Complications: none Interventions: oxygen applied Course Vital Signs: Vital signs: Vital Signs Pulse Rate 100 07/12/19 18:30 Respiratory Rate 14 07/12/19 18:30 Blood Pressure 137/55 07/12/19 18:30 Pulse Oximetry 99 07/12/19 18:30 MDM - Extremity (Nontraumatic) Imaging Data^: Xray Ortho: Radiologist's impression: XRay Report Signed Patient: Olga Luciano #: [id number] : 3Acct#:[id number] Age/Sex: 69 / FADM Date: 07/12/19 Loc: ERRoom/Bed: Attending Dr: Ordering Provider/Ordering MD: Cristy Doherty MD Date of Service: 07/12/19 Procedure(s): XR hip RT 2-3V wo/w pel* [id number] Accession Number(s): [id number] Report Number: [id number] PROCEDURE INFORMATION: Exam: XR Right Hip with Pelvis when Performed Exam date and time: 07/12/2019 4:32 PM Age: 69 years old Clinical indication: Hip pain; Prior surgery; Surgery type: R jazz; Patient HX: Recent dislocation of right hip, brace unable to be removed for x-ray images. [place] pop and pain in right hip trying to stand up; Additional info: Injury TECHNIQUE: Imaging protocol: XR Right hip with pelvis when performed. Views: 1 view. COMPARISON: CR XR hip RT 2-3V wo/w pel* [id number] 06/15/2019 1:26 PM FINDINGS: Bones/joints: There is dislocation and retraction of metallic right hip prosthesis. The distal component is retracted superior to the acetabular component. This finding appears similar to prior examination. No acute fracture. Soft tissues: Unremarkable. XR/XR hip RT 2-3V wo/w pel* [id number] IMPRESSION: Dislocation of metallic right hip prosthesis with retraction stable since prior examination. Negative for acute fractures Dictated By:Carlito Dumont Signed By:Ludwin Dumont Date/Time:07/12/191643 DD/ 164 Other Xray: Attestation: I personally reviewed and interpreted this imaging study as follows: My impression: reduced right hip dislocation Discharge Plan Discharge Patient Disposition: Home, Self-Care Clinical Impression: Dislocation of internal right hip prosthesis, initial encounter Condition: Stable Prescriptions: No Action celecoxib 100 mg capsule 100 mg PO DAILY RF: 0 turmeric root extract 500 mg capsule 500 mg PO DAILY RF: 0 PreserVision AREDS [id number] capsule 1 cap PO BID RF: 0 nortriptyline 25 mg capsule 25 mg PO DAILY RF: 0 atorvastatin 10 mg tablet 5 mg PO DAILY RF: 0 vitamin E 200 unit capsule 100 unit PO DAILY RF: 0 metformin 500 mg tablet 500 mg PO DAILY RF: 0 fluticasone propionate 50 mcg/actuation spray,suspension 2 spray INTRANASAL DAILY RF: 0 irbesartan 150 mg tablet 225 mg PO DAILY RF: 0 vitamin B complex Tablet 1 tab PO DAILY RF: 0 carbidopa-levodopa 25-100 mg tablet See Rx Instructions .ROUTE .COMPLEX RF: 0 hydrocodone-acetaminophen 5-325 mg tablet 1 tab PO Q6H PRN (Reason: pain) Qty: 20 RF: 0 Discharge Orders: Discharge Order (Routine); Ordered 07/12/19 Ordered By: Lillie Lauren Referrals: Leigh Ovalle, PAOLA [Primary Care Provider] - 1-3 days Discharge Diet: Advance as tolerated Discharge Activity: Limit activity as instructed Patient Instructions: Hip Dislocation (ED) Activity Restrictions/Additional Instructions: f/u with your ortho magdalene, return if worse, any problem, any change, wear splint Coding Level of Care Code 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
[2019-07-12] MEDS: ondansetron 2 mg/ML SDV 2 mL 4 MG IVP (17:04)
[2019-07-12] MEDS: morphine 4 mg/mL SDV 1 mL 10 MG IVP (17:04)
[2019-07-12] MEDS: etomidate 10 ML 10 MG (17:21)
--- NOTE | 2019-07-12 17:24 | XRR_ITS ---
PROCEDURE INFORMATION: Exam: XR Right Hip with Pelvis when Performed Exam date and time: 07/12/2019 5:32 PM Age: 69 years old Clinical indication: Hip pain; Right hip; Prior surgery; Surgery type: Right jazz; Additional info: Post-reduction of right hip TECHNIQUE: Imaging protocol: XR Right hip with pelvis when performed. Views: 1 view. COMPARISON: CR XR hip RT 2-3V wo/w pel* [id number] 07/12/2019 4:13 PM FINDINGS: Bones/joints: The previously seen dislocation of the right hip arthroplasty has now been successfully reduced. The metallic components appear appropriately positioned. No acute bony abnormality is seen. There is a 10 mm ossific density adjacent to the lesser trochanter which was present on prior examination and appears similar. This finding likely represents an accessory ossicle. Soft tissues: Unremarkable. XR/XR hip RT 1V wo/w pel [id number] IMPRESSION: 1. Successful reduction of dislocated right hip arthroplasty. 2. Otherwise negative for acute abnormality
[2019-07-12] MEDS: propofol 1,000 MG/100 ML INJ 100 MG (17:25)
--- NOTE | 2019-07-12 17:41 | PC.NURSE ---
Procedural Sedation for right hip reduction 1714- time out performed by Dr Lauren and Dr Doherty. RT at bedside, nursing staff x2 at bedside. Pt placed on 2LNC for procedure. 10mg Etomidate given per nurse, VS stable, see flowsheet. 1715- 5mg Etomidate given per nurse and 6mg Morphine given per nurse. Pt placed on 10LNC per Dr Doherty. VS stable. 1717- Pt placed on 10L NRB. Unsuccessful attempt at reduction d/t pt being very stiff and fighting staff. 1721- VO received for Propofol 100mg IVP per Dr Lauren. Medication given per Dr Lauren. 1723- Hip reduced per Dr Doherty 1726- post-reduction XR performed at bedside. Pt placed back in brace by staff. 1730- Pt alert and oriented x3, states pain is better (approx 2-3). VS stable, see flowsheet.
--- NOTE | 2019-08-29 14:40 | DCPLANNER ---
Patient did attend appointment scheduled with ortho.
== END 2019-07-12 20:52 | disposition home or self-care (01) ==
PROVIDERS: Emergency Provider Emergency Medicine; Family Provider Nurse Practitioner Family; PCP Nurse Practitioner Family
DX: T84.020A Dislocation of internal right hip prosthesis, initial encounter (principal); E11.9 Type 2 diabetes mellitus without complications; Z79.84 Long term (current) use of oral hypoglycemic drugs; I10 Essential (primary) hypertension; G20 Parkinson's disease
CPT/HCPCS: 12345; 27265; 73501; 73502; 96365; 96374; 96375; 99283; 99284; J2270; J2405; J2704; J3490

== ENCOUNTER → 2019-08-12 11:09 | Outpatient (BNVA) | payer MEDICARE, SELFPAY | PROVIDERS: Family Provider Nurse Practitioner Family; PCP Nurse Practitioner Family; Visit Provider Specialist | DX: S79.911A Unspecified injury of right hip, initial encounter (principal); X58.XXXA Exposure to other specified factors, initial encounter | CPT/HCPCS: 73502 ==

== ENCOUNTER 2019-09-13 09:45 | Emergency (ER) | payer MEDICARE, SELFPAY ==
[2019-09-13] VITALS (7 sets, daily range): BP systolic 96–173; BP diastolic 45–108; PULSE 99–120; RESP 15–28; TEMP 37.2; O2SAT 93–100; BMI 25.4
--- NOTE | 2019-09-13 10:05 | XR_ITS ---
WS: [id number] RIGHT HIP HISTORY: pain. Deformity COMPARISON: 08/12/2019 Right hip: Prior RIGHT hip arthroplasty. Acute dislocation of the RIGHT femoral head prosthesis from the acetabular component. Dislocation is anterior and superior to the acetabulum. No fracture. XR/XR hip RT 2-3V wo/w pel* [id number] IMPRESSION: 1. Acute anterior superior RIGHT hip prosthesis dislocation. 2. No fracture.
--- NOTE | 2019-09-13 10:43 | W.ED.EXTPRO ---
HPI - Extremity Problem General: Chief complaint: Extremity Injury, Lower Stated complaint: R HIP TRAUMA Time Seen by Provider: 09/13/19 09:45 History of Present Illness: HPI Narrative: 69-year-old female with a history of previous hip dislocation she actually is wearing a brace she hyperflexed at the right hip this morning felt a popping sensation is concerned she dislocated again she has had this at least 4 times in the past. Brought in by EMS they gave her pain medications on the way in [place] Complaint: extremity pain Onset (ago): minute(s) Pain Consistency: constant Location: right Quality: sharp Radiation: none Relieving factors: immobilization Exacerbating factors: range of motion and palpation Associated symptoms: Reports no associated symptoms; Deny chest pain, fever(s) or rash Review of Systems Const: Denies: fever(s), chills, body aches, change in appetite, fatigue or malaise ENMT: Denies: throat pain, ear or mastoid pain, nasal discharge or nasal congestion Card: Denies: chest pain, edema, dyspnea on exertion or orthopnea Resp: Denies: dyspnea, productive cough or non-productive cough GI: Denies: abdominal pain, nausea, vomiting, hematemesis, coffee ground emesis, diarrhea, constipation, bloating, hematochezia or melena : Denies: flank pain, difficulty voiding, dysuria, urinary frequency or urinary urgency Skin/Breast: Denies: rash or pruritus PFSH ED PFSH: Medical History Diabetes Hypertension Parkinson disease Family History Other Diabetes Hypertension Stroke Denies family history of CAD (coronary artery disease) Cancer Social History Smoking and tobacco status: never smoked Alcohol intake: never History of recent travel: No Physical Exam Const: COMMON NORMALS: no acute distress GENERAL APPEARANCE: cooperative and comfortable ORIENTATION/CONSCIOUSNESS: Yes awake, Yes oriented to person, Yes oriented to place and Yes oriented to time Eye: COMMON NORMALS: Equal, round and reactive pupils present, EOMs intact bilaterally, conjunctivae normal and no scleral icterus CONJUNCTIVA: Yes conjunctivae normal PUPIL: Yes Equal, round and reactive pupils present Neck/C-Spine: COMMON NORMALS: full ROM, no lymphadenopathy, supple and no JVD Lymph: LYMPHATIC: no lymphadenopathy noted and no lymphedema noted Resp: COMMON NORMALS: normal respiratory effort, No retractions, No use of accessory muscles and clear to auscultation bilaterally AUSCULTATION: clear to auscultation bilaterally Cardio: COMMON NORMALS: no JVD, regular rate, regular rhythm and No murmurs present (Cardio) RATE: regular rate RHYTHM: regular rhythm GI: COMMON NORMALS: Soft to palpation and No hepatosplenomegaly present AUSCULTATION: Yes normoactive bowel sounds PALPATION: Yes Soft to palpation, No Tenderness to palpation present (GI), No Guarding due to palpation present (GI) and Yes No hepatosplenomegaly present Extremity: COMMON NORMALS: normal to inspection, capillary refill normal, no clubbing, cyanosis or edema, no calf tenderness and no pedal edema Neuro: SENSORIUM/ORIENTATION: Yes oriented to person, Yes oriented to place and Yes oriented to time Skin: COMMON NORMALS: no rashes or lesions noted GENERAL SKIN EXAM: no rashes or lesions noted Procedures Orthopedic Joint Reduction Joint #1: Time Out Performed: Yes Side: right Joint Reduction Location: hip Analgesia: procedural sedation Technique used: direct manipulation Post-reduction neuro exam: intact Post-reduction vascular: intact Post Reduction X-Ray Obtained: Yes Post Reduction X-Ray Results: reduced Splint Applied: Yes Patient Tolerated Procedure: well Additional Comments: Patient has hip orthotic on prior to dislocation this was replaced discharged home with pain medications Procedural Sedation Indication: fracture/dislocation reduction IV Etomidate dose (mg): 20 Patient Tolerated Procedure: well Complications: none Additional Comments: Patient given to 10 mg doses of etomidate. Successfully reduced patient recovered well and discharged. Course Vital Signs: Vital signs: Vital Signs Temperature 98.9 F 09/13/19 09:55 Pulse Rate 99 09/13/19 12:12 Respiratory Rate 16 09/13/19 12:12 Blood Pressure 145/71 09/13/19 12:12 Pulse Oximetry 100 09/13/19 12:12 Discharge Plan Discharge Patient Disposition: Home, Self-Care Clinical Impression: Dislocation of internal right hip prosthesis, initial encounter, Diabetes, Hypertension Condition: Stable Prescriptions: New hydrocodone-acetaminophen 5-325 mg tablet 1 tab PO Q6H PRN (Reason: pain) Qty: 20 RF: 0 No Action celecoxib 100 mg capsule 100 mg PO DAILY RF: 0 turmeric root extract 500 mg capsule 500 mg PO DAILY RF: 0 PreserVision AREDS [id number] capsule 1 cap PO BID RF: 0 nortriptyline 25 mg capsule 25 mg PO DAILY RF: 0 atorvastatin 10 mg tablet 5 mg PO DAILY RF: 0 vitamin E 200 unit capsule 100 unit PO DAILY RF: 0 metformin 500 mg tablet 500 mg PO DAILY RF: 0 fluticasone propionate 50 mcg/actuation spray,suspension 2 spray INTRANASAL DAILY RF: 0 irbesartan 150 mg tablet 225 mg PO DAILY RF: 0 carbidopa-levodopa 25-100 mg tablet See Rx Instructions .ROUTE .COMPLEX Qty: 180 RF: 3 vitamin B complex Tablet 1 tab PO DAILY RF: 0 hydrocodone-acetaminophen 5-325 mg tablet 1 tab PO Q6H PRN (Reason: pain) Qty: 20 RF: 0 Referrals: Leigh Ovalle NP [Family Provider] - Yovany Grubbs MD [Primary Care Provider] - Discharge Diet: Advance as tolerated Discharge Activity: Increase activity as tolerated Activity Restrictions/Additional Instructions: Continue use of orthotic follow-up with Ortho within the next week. 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
[2019-09-13] MEDS: morphine 4 mg/mL SDV 1 mL IVP (10:49)
--- NOTE | 2019-09-13 11:07 | XR_ITS ---
WS: [id number] RIGHT hip, one view. HISTORY: Postreduction. COMPARISON: Study earlier the same day. On this AP projection the femoral head prosthesis overlies the acetabular component. Central position ing of the prosthetic head within the acetabular portion. No fractures. XR/XR hip RT 1V wo/[place] [id number] IMPRESSION: Satisfactory positioning of the RIGHT hip arthroplasty on this single projectio n.
[2019-09-13] MEDS: mupirocin oint 22 gm 1 APPLIC TOPICAL (12:11)
== END 2019-09-13 12:39 | disposition home or self-care (01) ==
PROVIDERS: Emergency Provider Family Medicine; Family Provider Nurse Practitioner Family; PCP Family Medicine
DX: T84.020A Dislocation of internal right hip prosthesis, initial encounter (principal); E11.9 Type 2 diabetes mellitus without complications; I10 Essential (primary) hypertension; X58.XXXA Exposure to other specified factors, initial encounter; G20 Parkinson's disease
CPT/HCPCS: 12345; 27265; 73501; 73502; 96374; 96375; 99283; 99284; J2270; J3490

== ENCOUNTER 2019-09-27 17:41 | Day surgery (SDC) | payer MEDICARE, SELFPAY ==
[2019-09-27] VITALS (15 sets, daily range): BP systolic 121–172; BP diastolic 54–93; PULSE 95–117; RESP 12–20; TEMP 36.3–37.5; O2SAT 93–100; BMI 25.4
--- NOTE | 2019-09-27 | XR_ITS ---
WS: [id number] C-ARM RADIOGRAPHS RIGHT HIP; 4 IMAGES HISTORY: OR PICS COMPARISON: None available. Intraoperative imaging during replacement of the dislocated RIGHT hip arthroplasty. Arthroplasty comp onents are in good position and alignment. XR/XR hip RT 1V wo/w pel [id number] IMPRESSION: Intraoperative imaging during reduction of the dislocated RIGHT hip arthroplast rody
--- NOTE | 2019-09-27 | SCC_ITS ---
Procedure Done: Closed reduction right hip dislocation under fluoroscopy and general anesthetic 51.6 seconds of fluoroscopic guidance, for a cumulative dose of 12.29 mGy, was provided to Dr. Lloyd by the radiology department. C-arm images of the RIGHT hip were saved for the patient's permanent record. ROXI
--- NOTE | 2019-09-27 18:05 | XRR_ITS ---
PROCEDURE INFORMATION: Exam: XR Right Hip with Pelvis when Performed Exam date and time: 09/27/2019 6:31 PM Age: 69 years old Clinical indication: Injury or trauma; Fall; Initial encounter; Dislocation; Does not apply; Hip; Prior surgery; Surgery date: 6+ months; Additional info: Poss dislocated hip TECHNIQUE: Imaging protocol: XR Right hip with pelvis when performed. Views: 1 view. COMPARISON: CR XR hip RT 1V wo/w pel [id number] 09/13/2019 11:17 AM FINDINGS: There has been dislocation of the femoral component of the right hip prosthesis. It appears to be displaced anteriorly and superiorly. No fracture or loosening is identified. XR/XR hip RT 2-3V wo/w pel* [id number] IMPRESSION: Anterior superior dislocation of the femoral component of the right hip prosthesis.
--- NOTE | 2019-09-27 18:28 | W.ED.EXTPRO ---
HPI - Extremity Problem General: Chief complaint: Extremity Injury, Lower Stated complaint: R HIP DISLOCATION Time Seen by Provider: 09/27/19 18:14 Source: patient and family Mode of arrival: EMS Limitations: no limitations History of Present Illness: HPI Narrative: Olga is a very nice 69-year-old female who comes in complaining of right hip pain. Patient states that she flexed too far forward with standing and has dislocated her right prosthetic hip. She has a history of doing this 5 other times prior. Previously the hip had been placed by a orthopedic doctor in [place]. She denies any distal numbness or weakness but she has severe pain when she tries to move her leg. She otherwise denies any injuries such as hitting her head, neck, chest or any other of her body. Patient denies being any blood thinners. The patient has had successful reductions in the ER but she is also had go to the operating room for reduction. Associated symptoms: Deny chest pain, fever(s) or rash Review of Systems Const: Denies: fever(s), chills, body aches, fatigue, malaise or diaphoresis Eyes: Denies: change in vision, blurry vision, blind spots, photophobia, eye discharge or eye redness ENMT: Denies: throat pain, odynophagia, hoarseness, swelling of lips/tongue, oral sores, ear or mastoid pain, ear discharge, change in hearing or nasal discharge Card: Denies: chest pain, palpitations, irregular heart rhythm, edema, lightheadedness, syncope, pre-syncope, dyspnea on exertion or orthopnea Resp: Denies: dyspnea, productive cough, non-productive cough, wheezing, hemoptysis or chest congestion GI: Denies: abdominal pain, nausea, vomiting, hematemesis, coffee ground emesis, heartburn, diarrhea, constipation, GI cramping, hematochezia or melena : Denies: flank pain, dysuria, urinary frequency, urinary urgency or hematuria Musc: Reports: extremity pain and joint pain; Denies: neck pain, back pain, extremity swelling, joint swelling, joint redness, joint warmth or joint stiffness Skin/Breast: Denies: rash, pruritus, erythema, skin tenderness or jaundice Neuro: Denies: headache(s), numbness in extremities, weakness in extremities, sensory changes, lack of coordination, difficulty walking, dizziness, vertigo, confusion, Slurred speech present or seizure-like activity Narciso/Lymph: Denies: easy bruising, easy bleeding, petechiae, purpura or enlarged lymph nodes All/Imm: Denies: urticaria, throat swelling, tongue swelling, facial swelling or acute wheezing PFSH ED PFSH: Medical History (Updated 09/27/19 @ 20:19 by Ofe Espino) Diabetes Hypertension Parkinson disease Family History Other Diabetes Hypertension Stroke Denies family history of CAD (coronary artery disease) Cancer Social History Smoking and tobacco status: never smoked Alcohol intake: never History of recent travel: No Physical Exam Const: COMMON NORMALS: no acute distress, patient oriented x3, no limitations, healthy appearing and well nourished GENERAL APPEARANCE: cooperative, well kempt and well developed HENMT: COMMON NORMALS: normocephalic, atraumatic, external ears normal, EAC's normal and Normal external nose present HEAD & SCALP: normal to inspection, normocephalic and atraumatic FACE & SINUS: normal facial exam and face symmetric NOSE: Normal external nose present and Normal nares present EXTERNAL EAR: Yes external ears normal EXTERNAL AUDITORY CANAL: EAC's normal MOUTH: Normal oral and palatal mucosa present, lip normal and tongue normal Eye: COMMON NORMALS: Equal, round and reactive pupils present and conjunctivae normal GENERAL EYE: appearance normal, both eyes and all related structures ALIGNMENT: Yes alignment normal PERIORBITAL: periorbital findings normal EYELID: eyelids normal CONJUNCTIVA: Yes conjunctivae normal SCLERA: sclerae normal PUPIL: Yes Equal, round and reactive pupils present Neck/C-Spine: COMMON NORMALS: full ROM, no lymphadenopathy, supple, no meningeal signs and no JVD GENERAL: Yes normal visual inspection and Yes trachea midline Chest: COMMONS NORMALS: normal inspection of the chest and normal palpation of entire chest wall Resp: COMMON NORMALS: normal respiratory effort, No retractions and No use of accessory muscles EFFORT & INSPECTION: Yes able to speak in complete sentences and Yes symmetric chest movement AUSCULTATION: no crackles, no rales, no rhonchi and no wheezes Cardio: COMMON NORMALS: no JVD, regular rate, regular rhythm, S1 normal heart sound present and S2 normal heart sound present RATE: regular rate RHYTHM: regular rhythm HEART SOUNDS: S1 normal heart sound present, S2 normal heart sound present, no click, no gallops, no murmurs, no rubs and abnormal split S2 GI: COMMON NORMALS: Soft to palpation and No hepatosplenomegaly present PALPATION: Yes Soft to palpation, No Tenderness to palpation present (GI), No Guarding due to palpation present (GI), No Rigid due to palpation, Yes No hepatosplenomegaly present, No Hernia present, No Palpable mass present and No Pulsatile mass present : COMMON NORMALS: Yes no CVA tenderness BLADDER/KIDNEY EXAM: Yes no CVA tenderness EXTERNAL FEMALE EXAM: No Hernia present Back/Pelvis: COMMON NORMALS: no CVA tenderness, thoracic and lumbar spine normal to inspection, no thoracic nor lumbar tenderness and thoraco-lumbar ROM normal Extremity: NARRATIVE EXTREMITY EXAM: Right hip with shortening and internal rotation consistent with dislocation. Neurovascular intact distal. Neuro: COMMON NORMALS: patient oriented x3, CN's II-XII intact bilaterally, moves all extremities, no focal motor deficits and no sensory deficits noted MENINGEAL SIGNS: Yes no meningeal signs SPEECH: speech normal Psych: COMMON NORMALS: mental status grossly normal, Normal thought process present, cooperative, normal affect, speech normal and activity/motor behavior normal APPEARANCE: Yes well kempt SPEECH: Yes normal speech THOUGHT PROCESS: Normal thought process present Skin: COMMON NORMALS: no rashes or lesions noted, turgor normal, no jaundice, no petechiae and no mottling GENERAL SKIN EXAM: no rashes or lesions noted and turgor normal Procedures Orthopedic Joint Reduction Joint #1: Time Out Performed: Yes Side: right Joint Reduction Location: hip Analgesia: procedural sedation Amount of anesthesic used (mL): 300 Shoulder Technique Used (if applicable): other Post-reduction neuro exam: intact Post-reduction vascular: intact Post Reduction X-Ray Obtained: Yes Post Reduction X-Ray Results: not reduced Patient Tolerated Procedure: well and no complications Procedural Sedation Indication: fracture/dislocation reduction Presedation Evaluation: See physical exam above ASA Class: II Preparation: secured entrance monitor applied, pulse oximeter, supplemental O2 applied, suction/airway equipment at bedside and IV secured IV Propofol dose (mg): 300 Patient Tolerated Procedure: well and no complications Course Vital Signs: Vital signs: Vital Signs Temperature 99.2 F 09/27/19 23:00 Pulse Rate 95 09/27/19 23:00 Respiratory Rate 18 09/27/19 23:00 Blood Pressure 128/58 09/27/19 23:00 Pulse Oximetry 100 09/27/19 23:00 MDM - Extremity (Nontraumatic) MDM Narrative: Medical decision making narrative: Dr. Winter was contacted and notified we are unable to reduce the hip. She knows the patient from previous experience and well notify the OR team and plan to take her to the operating room today or tomorrow for reduction. Lab Data: Labs: Lab Results 09/27/19 09/27/19 09/27/19 Range/Units 20:12 20:12 20:12 WBC 9.6 (4.0-10.0) 10^3/ uL RBC 4.26 (4.1-5.3) 10^6/u L Hgb 12.5 (11.5-15.3) g/dL Hct 39.7 (37.0-47.0) % MCV 93.2 (81-99) fL MCH 29.3 (28.0-34.0) pg MCHC 31.5 (30.0-36.0) g/dL RDW 13.2 (12.1-15.1) % Plt Count 260 (130-400) 10^3/c mm MPV 9.9 (7.4-10.4) fL Neut % (Auto) 75.8 % Lymph % (Auto) 14.3 % [place] % (Auto) 7.8 % Eos % (Auto) 1.3 % Baso % (Auto) 0.5 % Neut # (Auto) 7.27 (1.8-7.7) 10^3/u L Lymph # (Auto) 1.4 (0.8-4.8) 10^3/u L [place] # (Auto) 0.8 (0.2-0.9) 10^3/u L Eos # (Auto) 0.1 (0.0-0.8) 10^3/u L Baso # (Auto) 0.1 (0.0-0.1) 10^3/u L Nucleated RBC % (a uto) 0 % Nucleated RBCs # 0.0 /100WBC Sodium 139 (136-145) mmol/L Potassium 3.6 (3.5-5.1) mmol/L Chloride 102 (98-107) mmol/L Carbon Dioxide 27 (22-29) mmol/L Anion Gap 13.6 (5-19) BUN 12 (8-23) mg/dL Creatinine 0.8 (0.5-0.9) mg/dL GFR Calculation 71.5 L (90-130) mL/min Glucose 107 (65-115) mg/dL Calculated Osmolal ity 285 (285-295) mOsm/k g Calcium 9.0 (8.5-10.5) mg/dL Total Bilirubin 0.5 (0.15-1.2) mg/dL AST 54 H (0-32) U/L ALT 25 (0-33) U/L Alkaline Phosphata se 123 H (35-105) IU/L Total Protein 6.2 L (6.6-8.7) g/dL Albumin 4.2 (3.5-5.2) g/dL Globulin 2.0 (1.3-4.6) g/dL Urine Color Yellow (Yellow) Urine Appearance Hazy A (CLEAR) Urine pH 7 (5-7) Ur Specific Gravit y 1.015 (1.005-1.030) Urine Protein Neg (Negative) Urine Glucose (UA) Norm (Normal) Urine Ketones 1+ H (Negative) Urine Blood Neg (Negative) Urine Nitrate Negative (Negative) Urine Bilirubin Neg (NEGATIVE) Urine Urobilinogen Norm (Negative) mg/dL Ur Leukocyte Stephanie ase Negative (Negative) Urine RBC 0-4 H (0-2) /hpf Urine WBC None (0-5) /hpf Ur Squamous Epith Cells 0-4 H (0-5) Ur Transition Epit h Cell 0-4 /hpf Amorphous Sediment 1+ Urine Bacteria Trace (NONE) Hyaline Casts 0-4 H Discharge Plan Discharge Patient Disposition: Placed in Observation Clinical Impression: Dislocation, hip, anterior Qualifiers: Encounter type: initial encounter Laterality: right Qualified Code(s): S73.034A - Other anterior dislocation of right hip, initial encounter Discharge Diet: Advance as tolerated Discharge Activity: Limit activity as instructed and Use walker/crutches as instructed Discharge Date/Time: 09/27/19 21:30 Coding Level of Care Code 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
[2019-09-27] MEDS: morphine 4 mg/mL SDV 1 mL IVP (18:35)
[2019-09-27] MEDS: metoclopramide 5 mg/mL SDV 2 mL 10 MG IV (18:35)
--- NOTE | 2019-09-27 19:21 | XRR_ITS ---
PROCEDURE INFORMATION: Exam: XR Right Hip with Pelvis when Performed Exam date and time: 09/27/2019 9:40 PM Age: 69 years old Clinical indication: Condition or disease; Other: Dislocation/post reduction; Prior surgery; Additional info: Postreduction TECHNIQUE: Imaging protocol: XR Right hip with pelvis when performed. Views: 1 view. COMPARISON: CR XR hip RT 2-3V wo/w pel* [id number] 09/27/2019 6:15 PM FINDINGS: Bones/joints: Persistent right hip dislocation with superior lateral displacement of the femoral head prosthesis relative to the acetabular component, in the setting of arthroplasty. Soft tissues: Unremarkable as visualized. XR/XR hip RT 2-3V wo/w pel* [id number] IMPRESSION: Persistent right hip dislocation with superior lateral displacement of the femoral head prosthesis relative to the acetabular component, in the setting of arthroplasty.
[2019-09-27] MEDS: propofol 10 mg/mL SDV 20 mL 400 MG IVP (19:35)
[2019-09-27] MEDS: sodium chloride 0.9% 1,000 ML 999 ML IV (19:35)
--- NOTE | 2019-09-27 20:02 | ECG_ITS ---
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 Measurements Intervals [place] Rate: 112 P: 33 NM: 156 QRS: 3 QRSD: 81 T: -1 QT: 341 QTc: 467 Interpretive Statements SINUS TACHYCARDIA VOLTAGE CRITERIA FOR LVH [MEETS CRITERIA IN ONE OF: R(aVL), S(V1), R(V5), R(V5/V6)+S(V1)] INFERIOR MYOCARDIAL INFARCTION , PROBABLY OLD [40+ ms Q WAVE AND/OR ST/T ABNORMALITY IN II/aVF] No previous ECG available for comparison Electronically Signed On 09-27-2019 23:39:10 CDT by Harish Hollingsworth M.D. [id number]
--- NOTE | 2019-09-27 20:03 | XRR_ITS ---
PROCEDURE INFORMATION: Exam: XR Chest, 1 View Exam date and time: 09/27/2019 8:38 PM Age: 69 years old Clinical indication: Pre-operative exam; Cardiovascular screening and respiratory screening exam; Additional info: Pre op TECHNIQUE: Imaging protocol: XR of the chest Views: 1 view. COMPARISON: No relevant prior studies available. FINDINGS: Lungs: Poorly defined density overlying the right suprahilar region, warranting CT correlation. Hypoinflation with interstitial prominence and mild airspace disease. Pleural space: Questionable small right pleural effusion. Heart/Mediastinum: No cardiomegaly. Bones/joints: Degenerative change. Organs: Status post cholecystectomy. XR/XR chest 1V portable [id number] IMPRESSION: Poorly defined density overlying the right suprahilar region, warranting CT correlation.
[2019-09-27 20:24] LABS: Basophils # 0.1 10^3/uL (0.0-0.1); Basophils % 0.5 %; Eosinophils # 0.1 10^3/uL (0.0-0.8); Eosinophils % 1.3 %; Hematocrit 39.7 % (37.0-47.0); Hemoglobin 12.5 g/dL (11.5-15.3); Lymphocytes # 1.4 10^3/uL (0.8-4.8); Lymphocytes % 14.3 %; Mean Corpuscular HGB Conc 31.5 g/dL (30.0-36.0); Mean Corpuscular Hemoglobin 29.3 pg (28.0-34.0); Mean Corpuscular Volume 93.2 fL (81-99); Mean Platelet Volume 9.9 fL (7.4-10.4); Monocytes # 0.8 10^3/uL (0.2-0.9); Monocytes % 7.8 %; Neutrophils # 7.27 10^3/uL (1.8-7.7); Neutrophils % 75.8 %; Nucleated Red Blood Cells % 0 %; Platelet Count 260 10^3/cmm (130-400); Red Blood Count 4.26 10^6/uL (4.1-5.3); Red Cell Distribution Width 13.2 % (12.1-15.1); White Blood Count 9.6 10^3/uL (4.0-10.0)
--- NOTE | 2019-09-27 20:38 | PC.NURSE ---
Patient's daughter called to confirm status and informed that she is going to OR for reduction of dislocation of hip and impending admission.
[2019-09-27 20:50] LABS: Alanine Aminotransferase 25 U/L (0-33); Albumin Level 4.2 g/dL (3.5-5.2); Alkaline Phosphatase 123 IU/L (35-105); Anion Gap 13.6 (5-19); Aspartate Amino Transferase 54 U/L (0-32); Blood Urea Nitrogen 12 mg/dL (8-23); Carbon Dioxide 27 mmol/L (22-29); Chloride 102 mmol/L (98-107); Glomerular Filtration Rate 71.5 mL/min (90-130); Glucose 107 mg/dL (65-115); Osmolality Calculated 285 mOsm/kg (285-295); Potassium 3.6 mmol/L (3.5-5.1); Sodium 139 mmol/L (136-145); Total Bilirubin 0.5 mg/dL (0.15-1.2); Total Protein 6.2 g/dL (6.6-8.7)
--- NOTE | 2019-09-27 21:34 | ANES.PREANE2 ---
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 Proposed Procedure: Operation Date: 09/27/19 21:45 Proposed Procedures p Closed Reduction Hip(Not Applicable) - Jody Lloyd MD Was Beta Chava taken within 24 hours: N/A Last intake: Intake Last Liquid Date 09/27/19 Last Liquid Time 17:00 Last Solid Date 09/27/19 Last Solid Time 11:30 Last Intake: 11:30 Social: Social History: No alcohol and No tobacco Exam: Pre-Anes Outpt Exam: alert, oriented x 3, clear to auscultation bilaterally and regular rate & rhythm Airway: Submandibular: WNL Cervical ROM: WNL MP: 2 Dentition: False Additional comments: upper Pulmonary: Pulmonary: None reported CV/HEM: CV/HEM: HTN : : None reported Hepatic: Hepatic: None reported GI: GI: None reported Metabolic: Metabolic: DM Musc/skel: Musc/skel: OA/DJD Comments: parkinson Neuropsych: Neuropsych: None reported Anesthetic Plan: ASA status: 3 Anesthesia: Anesthesia Evaluation and General Risk of > 500 ml blood loss (7ml/kg in children): No PFSH Anesthesia PFSH: Medical History Diabetes Hypertension Parkinson disease Family History Other Diabetes Hypertension Stroke Denies family history of CAD (coronary artery disease) Cancer Social History Smoking and tobacco status: never smoked Alcohol intake: never History of recent travel: No Data Anesthesia Cardiac Studies: No Data to Display
[2019-09-27 21:39] LABS: Bilirubin Urine Neg (NEGATIVE); Blood Urine Neg (Negative); Glucose Urine UA Norm (Normal); Ketones Urine 1+ (Negative); Leukocyte Esterase Urine Negative (Negative); Nitrate Urine Negative (Negative); Protein Urine Neg (Negative); Specific Gravity, Urine 1.015 (1.005-1.030); Urine Appearance Hazy (CLEAR); Urine Color Yellow (Yellow); Urobilinogen Urine Norm (Negative); pH Urine 7 (5-7)
--- NOTE | 2019-09-27 21:43 | PM.HP ---
Providers/Chief Complaint Admitting Physician: Jody Lloyd MD Primary Care Provider: Yovany Grubbs MD Chief Complaint: R HIP DISLOCATION History of Present Illness Olga Luciano is a 69 year old female who is known both to Dr. Newberry and myself. Between 2005 and 2009, the patient had a total hip arthroplasty performed by Dr. Cabrera in [place]. She has had multiple dislocations. She actually has been reevaluated in [place] to discuss revision surgery. She states that this is still being discussed. She is encouraged to proceed with this as soon as possible. Review of Systems Const: Denies: fever(s) or chills Eyes: Denies: change in vision Card: Denies: chest pain or dyspnea on exertion Resp: Denies: dyspnea or productive cough GI: Denies: abdominal pain Skin/Breast: Denies: erythema or changes in skin color Neuro: Denies: numbness in extremities Psych: Denies: anxiety or depression Narciso/Lymph: Denies: easy bruising or easy bleeding Medications/Allergies Home Medications Medication Instructions Recorded Confirmed Last Taken Type atorvastatin 10 mg tablet 5 mg PO DAILY 05/29/19 09/27/19 09/27/19 History celecoxib 100 mg capsule 100 mg PO DAILY 05/29/19 09/27/19 09/27/19 History fluticasone propionate 50 2 spray INTRANASAL DAILY 05/29/19 09/27/19 09/27/19 History mcg/actuation nasal spray,suspension irbesartan 150 mg tablet 225 mg PO DAILY tab 05/29/19 09/27/19 09/27/19 History metformin 500 mg tablet 500 mg PO DAILY 05/29/19 09/27/19 09/27/19 History nortriptyline 25 mg capsule 25 mg PO DAILY 05/29/19 09/27/19 09/27/19 History turmeric root extract 500 mg 500 mg PO DAILY 05/29/19 09/27/19 09/27/19 History capsule vitamin E 200 unit capsule 100 unit PO DAILY cap 05/29/19 09/27/19 09/27/19 History vitamins A,C,Z-fjmw-mqzsip 14,320 1 cap PO BID cap 05/29/19 09/27/19 09/27/19 History unit-226 mg-200 unit capsule vitamin B complex 1 tab PO DAILY 06/15/19 09/27/19 09/27/19 History hydrocodone-acetaminophen 1 tab PO Q6H PRN #20 tab 06/16/19 09/27/19 Unknown Rx carbidopa 25 mg-levodopa 100 mg See Rx Instructions .ROUTE 08/27/19 09/27/19 09/27/19 Rx tablet .COMPLEX #180 tab Allergies Allergy/AdvReac Type Severity Reaction Status Date / Time No Known Allergies Allergy Verified 09/27/19 18:35 PFSH Acute PFSH: Medical History (Updated 09/27/19 @ 20:19 by Ofe Espino) Diabetes Hypertension Parkinson disease Family History Other Diabetes Hypertension Stroke Denies family history of CAD (coronary artery disease) Cancer Social History Smoking and tobacco status: never smoked Alcohol intake: never History of recent travel: No Vitals/I&O/Wt Last Vital Signs Temp 99.0 F 09/27/19 17:49 Pulse 115 H 09/27/19 20:52 Resp 18 09/27/19 20:52 BP 158/54 09/27/19 20:52 Pulse Ox 99 09/27/19 20:52 Weight last 48 hrs Weight 148 lb Physical Exam Const: COMMON NORMALS: no acute distress, average body habitus, patient oriented x3 and alert GENERAL APPEARANCE: cooperative and comfortable ORIENTATION/CONSCIOUSNESS: Yes awake HENMT: COMMON NORMALS: normocephalic and atraumatic HEAD & SCALP: normocephalic and atraumatic Eye: GENERAL EYE: appearance normal, both eyes and all related structures Chest: COMMONS NORMALS: normal inspection of the chest Resp: COMMON NORMALS: normal respiratory effort EFFORT & INSPECTION: Yes able to speak in complete sentences and Yes symmetric chest movement Extremity: RIGHT LOWER EXTREMITY: Yes hip joint (The lower extremity is shortened and externally rotated. She is neurologically intact.) Right hip: Yes palpation (There is tenderness to palpation in any range of motion.) and Yes neurovascular exam (Intact vascular status without evidence of DVT.) Neuro: COMMON NORMALS: patient oriented x3 SENSORIUM/ORIENTATION: Yes alert Psych: COMMON NORMALS: mental status grossly normal APPEARANCE: Yes grossly normal ATTITUDE: Yes calm and Yes engaged ATTENTION/CONCENTRATION: Yes attention grossly intact Skin: COMMON NORMALS: no rashes or lesions noted GENERAL SKIN EXAM: no rashes or lesions noted Urinary Catheter Management^: Sanderson: Cath Placed During This Visit: yes Reason for Continuing Indwelling Catheter: Perioperative Use in Selected Surgeries Urinary Catheter Date of Insertion: 09/27/19 Urinary Catheter Time of Insertion: 20:25 Data : 09/27/19 20:12 Xray Ortho: I personally reviewed and interpreted this imaging study as follows: My impression: Pre-and post reduction films obtained in the emergency department are reviewed. The hip is dislocated and remains so after attempted closed reduction. This is a superior hip dislocation. A&P Assessment and plan (1) Dislocation, hip, anterior: The patient is known to both Dr. Newberry and myself. Her initial index procedure was performed in [place] by Dr. Cabrera. He has since retired, but the patient is exploring options in [place] to have this hip addressed. She understands that she requires revision. She also understands that this would need to be done where more adequate equipment to proceed with a complex revision is available. Status: Acute Qualifiers: Encounter type: initial encounter Laterality: right Qualified Code(s): S73.034A - Other anterior dislocation of right hip, initial encounter Attestations Medical Necessity Statement*: The patient will likely not require inpatient admission, but hopefully, we will be able to reduce her hip and she will be discharged to home. 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
[2019-09-27 21:50] LABS: Hyaline Casts Urine 0-4
[2019-09-27 21:51] LABS: Add Urine Culture? No; Amorphous Sediment Urine 1+; Bacteria Urine TRACE; RBC Urine 0-4 /hpf (0-2); Squamous Epithelial Cell Urine 0-4 (0-5); Transitional Epi Cells Urine 0-4 /hpf
[2019-09-27] MEDS: vancomycin 1,000 MG in sodium chloride 0.9% 250 ML 250 MG IV (22:17)
--- NOTE | 2019-09-27 22:45 | PM.OP ---
Operative Report Date of procedure: September 27, 2019 Pre-op Diagnosis: Right hip recurrent dislocation of prosthetic implant Post-op diagnosis: same Procedure Done: Closed reduction right hip dislocation under fluoroscopy and general anesthetic Specimens removed/disposition: None Pathology: none sent Surgeon: Jody Lloyd Time Stamp Assembler: [facility] or technicians Anesthesia: General (LMA) Estimated blood loss (mL): 0 IV fluids (mL): 100 Urine output (mL): 0 Complications: None Findings: Recurrent right hip dislocation Condition: stable Disposition: PACU (Then home with family) Brief History: This 69-year-old woman previously had total hip arthroplasty bilateral in [place] sometime between 2005 and 2009. The patient has had multiple recurrent dislocations since the beginning of this year. She was advised to return to [place] for consideration of revision. She states that she has been seen there and they are talking about it . She does not have a definitive plan at this point. Several of the dislocations have been able to be reduced in the emergency department, but she did require closed reduction in the operating room under general anesthesia with Dr. Newberry earlier this year. She presented tonight and hip was not able to be reduced in the emergency department. The patient was brought to the operating theater. Procedure: Patient is brought to the operating theater. After undergoing adequate general anesthesia with LMA, the patient was transferred to the fracture table, positioned on the table and fluoroscopic guidance obtained throughout the surgical procedure. Prior to the commencement of the surgical procedure, a surgical pause was performed. At the time of the surgical pause, we confirmed the site and side of surgery as well as preoperative surgical markings and appropriate and timely administration of IV antibiotics, vancomycin 1 g. Availability of equipment was also confirmed. Following this, under fluoroscopic guidance, the hip was manually reduced. The reduction was quite difficult. This required longitudinal traction as well as manipulation at the level of the dislocated prosthesis. We were able to convert the superior anterior dislocation into the posterior dislocation and then we were able to affect a reduction. The reduction was confirmed in AP and lateral planes utilizing fluoroscopy. Images were saved. The patient was returned to the recovery room in a satisfactory condition after reduction. Associated Problem List Diagnoses (1) Dislocation of internal right hip prosthesis, initial encounter:
--- NOTE | 2019-09-27 22:58 | SUR.PHASEI ---
PT AWAKE ALERT REQUESTS BLANKETS, PT GIVEN BLANKET X 2 PT ON NC 3L, VSS RT LEG IN KNEE IMMOBILIZER, DISTAL FOOT PINK WARM WITH STRONG REGULAR PULSE NOTED PT VERBALLY DENIES PAIN AND NAUSEA.. IV PATENT TO LT AC VANCOMYCIN INFUSIN, APPOX 200 ML LEFT, PLACED ON PUMP AT 250ML/HR. PT TO GO HOME DR MINAYA TALKED WITH PT SISTER IN LAW WEBBER, AND THAT PT WILL BE DISCHARGED APPROXIMATELY 2345. TONIGHT.
--- NOTE | 2019-09-27 23:41 | SUR.PHASEII ---
pt awake alert drinking sips of water, pt denies pain to rt hip vancomycin almost infused pt family at ER door waiting for pt discharche.
--- NOTE | 2019-09-28 00:13 | SUR.PHASEI ---
2355 pt asssisted with dressing iv out intact, pt up to w/c and discharged home with family mimber .
== END 2019-09-27 23:05 | disposition home or self-care (01) ==
LOC: ER 20:19 → OR 20:48
PROVIDERS: Emergency Medicine; PCP Family Medicine; Visit Provider Specialist
PROC: (CPT 27257; principal; 2019-09-27 21:45)
DX: M24.451 Recurrent dislocation, right hip (principal); Z79.891 Long term (current) use of opiate analgesic; E11.9 Type 2 diabetes mellitus without complications; I10 Essential (primary) hypertension; G20 Parkinson's disease; Z82.49 Family history of ischemic heart disease and other diseases of the circulatory system; Z83.3 Family history of diabetes mellitus; M19.90 Unspecified osteoarthritis, unspecified site
CPT/HCPCS: 27257; 12345; 27265; 51702; 71045; 73501; 73502; 76000; 80053; 81001; 85025; 93005; 96365; 96375; 99283; J0131; J2270; J2704; J2765; J3010; J3370; J7030; J7050

== ENCOUNTER → 2019-12-09 13:29 | Outpatient (BNVA) | payer MEDICARE, SELFPAY | PROVIDERS: PCP Family Medicine; Visit Provider Specialist | DX: G20 Parkinson's disease (principal) | CPT/HCPCS: 99213 ==

== ENCOUNTER 2019-12-17 06:00 | Outpatient (RCR) | payer MEDICARE, SELFPAY | END 2020-01-11 23:59 | disposition home or self-care (01) | LOC: SPT 06:00 | PROVIDERS: PCP Family Medicine; Referring Provider Specialist; Visit Provider Specialist | DX: G20 Parkinson's disease (principal) | CPT/HCPCS: 97110; 97112; 97162; 97530 ==

== ENCOUNTER 2019-12-20 12:46 | Outpatient (CLI) | payer MEDICARE, SELFPAY ==
--- NOTE | 2019-12-20 13:04 | XR_ITS ---
WS: [id number] DEXA (DUAL ENERGY X-RAY ABSORPTIOMETRY) Bone mineral density was performed using a [employer] machine. HISTORY: AGE RELATED OSTEOPOROSIS W/O CURRENT pathological FX COMPARISON: 10/04/2017 Lumbar spine BMD (L1-L3): 1.215 T score: 0.4 Z score: 2.1 Left forearm BMD: 0.726 g/cm2. T score: -1.7 Z score: -0.1 10 year probability of a major osteoporotic fracture is 9%. Compared to the prior study from 10/04/2017. Lumbar spine bone mineral density has decreased by 4.3%. Bilateral hips bone mineral density has decreased by 8.9%. XR/XR DEXA axial skeleton* [id number] IMPRESSION: OSTEOPENIA based upon the WHO classification for females. Significant decrease in bone mineral density in the lumbar spine and hips since the prior study.
--- NOTE | 2019-12-20 13:04 | CT_ITS ---
WS: [id number] CT CHEST WITHOUT INTRAVENOUS CONTRAST HISTORY: ABNORMAL CHEST XRAY TECHNIQUE: Contiguous 5 mm axial imaging performed on the thorax. Coronal and sagittal reformats are submitted. All CT scans at [facility] use at least one of these dose optimization techniq ues: automated exposure control; mA and/or kV adjustment per patient size (includes targeted exams wh ere dose is matched to clinical indication); or iterative reconstruction. CONTRAST: None DLP: 566.03 mGycm COMPARISON: Chest radiograph 09/27/2019 Lungs and central airway: No pneumonia. Linear subsegmental atelectasis at the lingula and RIGHT lowe r lobe. Pleura: Normal. No pleural effusion. Heart and pericardium: Normal size heart with no pericardial effusion. Mediastinum and lavinia: No mediastinum or hilar adenopathy. Vessels: Very mild atherosclerosis. Pulmonary artery size is normal. Chest wall and lower neck: No soft tissue masses. Upper abdomen: Prior cholecystectomy. No adrenal mass. Mild hepatic steatosis. Osseous structures: Increase in thoracic kyphosis. Mild anterior wedging of T6. CT/CT chest wo con [id number] IMPRESSION: 1. Subsegmental lingular and RIGHT lower lobe atelectasis. 2. No pneumonia. 3. Previously described radiographic findings from 09/27/2019 resolved. 4. Prior cholecystectomy.
== END 2019-12-20 12:47 | disposition home or self-care (01) ==
LOC: RADWPI 12:52
PROVIDERS: PCP Family Medicine; Visit Provider Nurse Practitioner Family
DX: R93.89 Abnormal findings on diagnostic imaging of other specified body structures (principal); M81.0 Age-related osteoporosis without current pathological fracture; Z78.0 Asymptomatic menopausal state; J98.11 Atelectasis; Z90.49 Acquired absence of other specified parts of digestive tract; M85.88 Other specified disorders of bone density and structure, other site
CPT/HCPCS: 71250; 77080

== ENCOUNTER 2020-01-12 06:00 | Outpatient (RCR) | payer MEDICARE, SELFPAY | END 2020-02-10 23:59 | disposition home or self-care (01) | LOC: SPT 06:00 | PROVIDERS: PCP Family Medicine; Referring Provider Specialist; Visit Provider Specialist | DX: G20 Parkinson's disease (principal) | CPT/HCPCS: 97110; 97530 ==

== ENCOUNTER → 2020-06-10 13:45 | Outpatient (BNVA) | payer MEDICARE, SELFPAY | PROVIDERS: PCP Family Medicine; Visit Provider Specialist | DX: G20 Parkinson's disease (principal) | CPT/HCPCS: 99214 ==

== ENCOUNTER → 2020-12-15 14:09 | Outpatient (BNVA) | payer MEDICARE, SELFPAY | PROVIDERS: Visit Provider Specialist | DX: G20 Parkinson's disease (principal); G24.8 Other dystonia | CPT/HCPCS: 99214 ==

== ENCOUNTER → 2020-12-31 13:08 | Outpatient (BNVA) | payer MEDICARE, SELFPAY | PROVIDERS: Visit Provider Specialist | DX: G24.8 Other dystonia (principal); G20 Parkinson's disease | CPT/HCPCS: 64616; 64642; 99213; J0585 ==

== ENCOUNTER → 2021-03-16 12:56 | Outpatient (BNVA) | payer MEDICARE, SELFPAY | PROVIDERS: Visit Provider Specialist | DX: G20 Parkinson's disease (principal) | CPT/HCPCS: 99214 ==

== ENCOUNTER → 2021-04-22 14:34 | Outpatient (BNVA) | payer MEDICARE, SELFPAY | PROVIDERS: Visit Provider Specialist | DX: G20 Parkinson's disease (principal); G24.8 Other dystonia | CPT/HCPCS: 64616; 99213; 99214; J0585 ==

== ENCOUNTER → 2021-07-05 12:15 | Outpatient (BNVA) | payer MEDICARE, SELFPAY | PROVIDERS: Visit Provider Specialist | DX: G20 Parkinson's disease (principal); G24.8 Other dystonia | CPT/HCPCS: 64616; 99214 ==

== ENCOUNTER → 2024-11-25 09:46 | Outpatient (BNVA) | payer MEDICARE, SELFPAY | PROVIDERS: Visit Provider Internal Medicine Rheumatology | DX: M05.79 Rheumatoid arthritis with rheumatoid factor of multiple sites without organ or systems involvement (principal); Z79.899 Other long term (current) drug therapy; Z71.85 Encounter for immunization safety counseling; M81.0 Age-related osteoporosis without current pathological fracture; G20.A1 Parkinson's disease without dyskinesia, without mention of fluctuations; M25.50 Pain in unspecified joint | CPT/HCPCS: 36415; 80076; 82306; 82565; 85025; 85651; 86140; 86480; 86704; 86803; 87340; 99204 ==